=== PATIENT | male | born 1970 | race American Indian/Alaskan Native ===

== ENCOUNTER 2019-04-20 21:49 | Emergency (ER) | payer MEDICAID ==
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
[2019-04-20 22:06] VITALS: BP 141/94; PULSE 115
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
[2019-04-20] MEDS ORDERED: Penicillin V Potassium 250 MG Tab PO ONE (22:54)
[2019-04-20] MEDS ORDERED: Acetaminophen/oxyCODONE 325-5 MG Tab PO ONE (22:55)
== END 2019-04-20 23:15 | disposition home or self-care (01) ==
LOC: JP.ED 21:49
DX: K04.7 Periapical abscess without sinus (principal)
CPT/HCPCS: 70110; 99283; A9270

== ENCOUNTER 2019-04-23 14:02 | Inpatient (IN) | payer MEDICAID ==
[2019-04-23] MEDS ORDERED: Sodium Chloride 0.9% 1,000 ML IV SCH ×2 (14:45→17:15)
--- NOTE | 2019-04-23 14:48 | EDM.PDOC ---
ED HPI GENERAL MEDICAL PROBLEM - General Chief Complaint: General Stated Complaint: SWELLING AND PAIN IN JAW/NECK Time Seen by Provider: 04/23/19 14:28 Source of Information: Reports: Patient History Limitations: Reports: No Limitations - History of Present Illness INITIAL COMMENTS - FREE TEXT/NARRATIVE: 48 yo male presents with left facial swelling and pain. He was previously seen in ER on the and in clinic yesterday. He has been on PCN antibiotic and added Bactrim since yesterday. the swelling and pain continues. He has been taking ibuprofen at least twice daily and Percocet for pain. He is diabetic and has not taken his medications this AM. He did have an US in clinic yesterday without identification of abscess. afebrile. Left Cheek Pain Score (Numeric/FACES): 10 - Related Data Allergies Allergy/AdvReac Type Severity Reaction Status Date / Time No Known Allergies Allergy Verified 04/20/19 22:06 Home Meds: Home Meds Aspirin 81 mg PO DAILY 04/23/19 [History] Hydrocodone/Acetaminophen [Hydrocodon-Acetaminophen 5-325] 1 tab PO TID [History] Ibuprofen 400 mg PO TID PRN 04/23/19 [History] Insulin Glargine,Hum.Rec.Anlog [Basaglar Kwikpen U-100] 20 unit SQ BID 04/23/19 [History] Lisinopril 5 mg PO DAILY 04/23/19 [History] Pregabalin [Lyrica] 100 mg PO TID 04/23/19 [History] Sulfamethoxazole/Trimethoprim [Bactrim Ds Tablet] 1 each PO BID 04/23/19 [ History] atorvaSTATin [Lipitor] 20 mg PO DAILY 04/23/19 [History] Past Medical History HEENT History: Reports: Impaired Vision Endocrine/Metabolic History: Reports: Diabetes, Type II - Infectious Disease History Infectious Disease History: Reports: Chicken Pox - Past Surgical History Head Surgeries/Procedures: Reports: None Dermatological Surgical History: Reports: None Social & Family History - Tobacco Use Smoking Status *Q: Current Every Day Smoker Years of Tobacco use: 30 Packs/Tins Daily: 1 - Caffeine Use Caffeine Use: Reports: Coffee, Soda - Recreational Drug Use Recreational Drug Use: No ED ROS GENERAL - Review of Systems Review Of Systems: See Below Constitutional: Reports: Fatigue. Denies: Fever HEENT: Reports: Dental Pain, Ear Pain, Throat Pain, Throat Swelling Respiratory: Denies: Shortness of Breath, Wheezing Cardiovascular: Denies: Chest Pain : Reports: Frequency ED EXAM, GENERAL - Physical Exam Exam: See Below Exam Limited By: No Limitations General Appearance: Alert, WD/WN, Mild Distress Nose: Normal Inspection, Normal Mucosa, No Blood Throat/Mouth: Other (severe swelling left face at jaw line, very painful to palpate. ) Head: Atraumatic Neck: Lymphadenopathy (L), Tender Lateral. No: Tender Midline Course - Vital Signs Last Recorded V/S: Last Vital Signs Temp 35.6 C 04/23/19 14:23 Pulse 100 04/23/19 15:14 Resp 18 04/23/19 14:23 BP 164/102 H 04/23/19 15:14 Pulse Ox 98 04/23/19 15:14 - Orders/Labs/Meds Orders: Active Orders 24 hr Category Date Time Status Sodium Chloride 0.9% [Normal Saline] 1,000 ml Med 04/23/19 14:45 Active IV ASDIRECTED Medication Orders Sodium Chloride (Normal Saline) 1,000 mls @ 500 mls/hr IV ASDIRECTED YARON Last Admin: 04/23/19 15:01 Dose: 500 mls/hr Labs: Laboratory Tests 04/23/19 04/23/19 04/23/19 Range/Units 15:05 15:05 15:05 WBC 15.3 H (4.5-11.0) K/uL RBC 5.74 (4.30-5.90) M/uL Hgb 16.8 H (12.0-15.0) g/dL Hct 49.1 (40.0-54.0) % MCV 86 (80-98) fL MCH 29 (27-31) pg MCHC 34 (32-36) % Plt Count 375 (150-400) K/uL Neut % (Auto) 84 H (36-66) % Lymph % (Auto) 8 L (24-44) % [place] % (Auto) 8 H (2-6) % Eos % (Auto) 0 L (2-4) % Baso % (Auto) 0 (0-1) % Sodium 127 L (140-148) mmol/L Potassium 6.4 H* (3.6-5.2) mmol/L Chloride 91 L (100-108) mmol/L Carbon Dioxide 26 (21-32) mmol/L Anion Gap 16.4 H (5.0-14.0) mmol/L BUN 13 D (7-18) mg/dL Creatinine 1.1 (0.8-1.3) mg/dL Est Cr Clr Drug Dosing 83.39 mL/min Estimated GFR (MDRD) > 60 (>60) Glucose 530 H* (74-106) mg/dL Lactic Acid 2.7 H (0.4-2.0) mmol/L Calcium 9.4 (8.5-10.1) mg/dL Meds: Medications Generic Name Dose Route Start Last Admin Trade Name Freq PRN Reason Stop Dose Admin Sodium Chloride 1,000 mls @ 500 mls/hr 04/23/19 14:45 04/23/19 15:01 Normal Saline IV 500 mls/hr ASDIRECTED YARON Administration Discontinued Medications Generic Name Dose Route Start Last Admin Trade Name Freq PRN Reason Stop Dose Admin Fentanyl 50 mcg 04/23/19 15:37 04/23/19 15:42 Sublimaze IVPUSH 04/23/19 15:38 50 mcg ONETIME ONE Administration Insulin Human NPH 14 unit 04/23/19 16:15 04/23/19 16:09 Humulin N SUBCUT 04/23/19 16:16 14 unit ONETIME ONE Administration Ketorolac Tromethamine 30 mg 04/23/19 15:36 04/23/19 15:42 Toradol IVPUSH 04/23/19 15:37 30 mg ONETIME ONE Administration - Re-Assessments/Exams Free Text/Narrative Re-Assessment/Exam: 04/23/19 17:15 Dr. gilliam consulted for admission for IV antibiotics facial cellulitis and hyperglycemia Departure - Departure Time of Disposition: 17:16 Disposition: Admitted As Inpatient 65 Condition: Fair Clinical Impression: Facial cellulitis Hyperglycemia due to type 2 diabetes mellitus Qualifiers: Diabetes mellitus usp insulin use: with usp use Qualified Code(s): E11.65 - Type 2 diabetes mellitus with hyperglycemia; Z79.4 - cleat blanker (current ) use of insulin - Discharge Information Referrals: Anna Welch MD [Primary Care Provider] - Forms: ED Department Discharge - My Orders Last 24 Hours: My Active Orders 04/23/19 14:45 Sodium Chloride 0.9% [Normal Saline] 1,000 ml IV ASDIRECTED - Assessment/Plan Last 24 Hours: My Active Orders 04/23/19 14:45 Sodium Chloride 0.9% [Normal Saline] 1,000 ml IV ASDIRECTED
[2019-04-23] MEDS ORDERED: Ketorolac 30 MG/ML SDV IVPUSH ONE (15:36)
[2019-04-23] MEDS ORDERED: fentaNYL 100 MCG/2 ML SDV IVPUSH ONE (15:37)
[2019-04-23] MEDS ORDERED: Insulin Isophane NPH, Human 100 Units/ML 10 ML Vial SUBCUT ONE (15:47)
[2019-04-23] MEDS ORDERED: Insulin Isophane NPH, Human 100 Units/ML 3 ML Vial SUBCUT ONE (16:15)
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
[2019-04-23] MEDS ORDERED: Ondansetron 4 MG Tab.DIS PO PRN (17:44)
[2019-04-23] MEDS ORDERED: LORazepam 2 MG/ML SDV IVPUSH PRN (17:44)
[2019-04-23] MEDS ORDERED: Ondansetron 4 MG/2 ML SDV IV PRN (17:44)
[2019-04-23] MEDS ORDERED: Magnesium Hydroxide 400 MG/5 ML Susp 30 ML Cup PO PRN (17:44)
[2019-04-23] MEDS ORDERED: Lidocaine 2% Viscous Solution 15 ML Cup PO PRN (17:57)
[2019-04-23] MEDS: metFORMIN 500 MG Tab PO SCH (18:33)
[2019-04-23] MEDS: oxyCODONE 5 MG Tab PO PRN (19:07)
[2019-04-23] MEDS: Ibuprofen 600 MG Tab PO PRN (19:07)
[2019-04-23] MEDS: Sodium Chloride 0.9% 1,000 ML IV SCH (20:10)
[2019-04-23] MEDS: Insulin Lispro 100 Unit/ML 3 ML KwikPen SUBCUT SCH (20:59)
[2019-04-23] MEDS: Insulin Glargine,Human Rec. Analog 100 Units/ML 3 ML Pen SUBCUT SCH (21:00)
[2019-04-23] MEDS: Pregabalin 100 MG Cap PO SCH (21:01)
[2019-04-23] MEDS: Lactobacillus Rhamnosus GG (Probiotic) Cap PO SCH (21:01)
[2019-04-23] MEDS: HYDROmorphone 1 MG/ML Syringe IVPUSH PRN (22:19)
[2019-04-24] MEDS: HYDROmorphone 1 MG/ML Syringe IVPUSH PRN ×5 (01:00→16:53)
[2019-04-24] MEDS: Sodium Chloride 0.9% 1,000 ML IV SCH (03:46)
[2019-04-24] MEDS: Ibuprofen 600 MG Tab PO PRN (06:41)
[2019-04-24] MEDS: Acetaminophen 325 MG Tab PO PRN ×2 (06:41→21:17)
[2019-04-24] MEDS: Insulin Lispro 100 Unit/ML 3 ML KwikPen SUBCUT SCH ×4 (07:31→20:46)
[2019-04-24] MEDS: Lactobacillus Rhamnosus GG (Probiotic) Cap PO SCH ×2 (08:55→20:46)
[2019-04-24] MEDS: metFORMIN 500 MG Tab PO SCH ×2 (08:55→16:53)
[2019-04-24] MEDS: Aspirin 81 MG Tab.EC PO SCH (08:56)
[2019-04-24] MEDS: Lisinopril 5 MG Tab PO SCH (08:56)
[2019-04-24] MEDS: atorvaSTATin 20 MG Tab PO SCH (08:56)
[2019-04-24] MEDS: Insulin Glargine,Human Rec. Analog 100 Units/ML 3 ML Pen SUBCUT SCH ×2 (09:03→20:45)
[2019-04-24] MEDS: Pregabalin 100 MG Cap PO SCH ×3 (09:04→22:34)
[2019-04-24] MEDS ORDERED: Ketorolac 30 MG/ML SDV IVPUSH PRN (09:12)
--- NOTE | 2019-04-24 09:14 | PCM.PN ---
- General Info Date of Service: 04/24/19 Subjective Update: there were no acute events overnight. The patient did have a fever after admission. Temperature is normal today. Pain with swallowing and pain in the left cheek are a little better today but still moderate to moderately severe. In general he's feeling better. Blood sugars have been improving but remain moderately elevated. tolerating antibiotics so far. Functional Status: Reports: Pain Controlled, Tolerating Diet - Review of Systems General: Reports: Fever HEENT: Reports: Sore Throat - Patient Data Vitals - Most Recent: Last Vital Signs Temp 37.1 C 04/24/19 07:11 Pulse 92 04/24/19 01:04 Resp 16 04/24/19 01:04 BP 115/81 04/24/19 08:56 Pulse Ox 97 04/24/19 01:04 Weight - Most Recent: 72.575 kg I&O - Last 24 Hours: Intake & Output 04/23/19 04/24/19 04/24/19 22:59 06:59 14:59 Intake Total 2178 Output Total 500 Balance -500 2178 Lab Results Last 24 Hours: Laboratory Results - last 24 hr 04/23/19 04/23/19 04/23/19 Range/Units 15:05 15:05 15:05 WBC 15.3 H (4.5-11.0) K/uL RBC 5.74 (4.30-5.90) M/uL Hgb 16.8 H (12.0-15.0) g/dL Hct 49.1 (40.0-54.0) % MCV 86 (80-98) fL MCH 29 (27-31) pg MCHC 34 (32-36) % Plt Count 375 (150-400) K/uL Neut % (Auto) 84 H (36-66) % Lymph % (Auto) 8 L (24-44) % Moffat % (Auto) 8 H (2-6) % Eos % (Auto) 0 L (2-4) % Baso % (Auto) 0 (0-1) % Sodium 127 L (140-148) mmol/L Potassium 6.4 H* (3.6-5.2) mmol/L Chloride 91 L (100-108) mmol/L Carbon Dioxide 26 (21-32) mmol/L Anion Gap 16.4 H (5.0-14.0) mmol/L BUN 13 D (7-18) mg/dL Creatinine 1.1 (0.8-1.3) mg/dL Est Cr Clr Drug Dosing 83.39 mL/min Estimated GFR (MDRD) > 60 (>60) Glucose 530 H* (74-106) mg/dL Lactic Acid 2.7 H (0.4-2.0) mmol/L Calcium 9.4 (8.5-10.1) mg/dL 04/23/19 04/23/19 04/24/19 Range/Units 21:32 21:32 04:10 WBC 15.9 H (4.5-11.0) K/uL RBC 4.96 (4.30-5.90) M/uL Hgb 14.6 D (12.0-15.0) g/dL Hct 43.4 (40.0-54.0) % MCV 88 (80-98) fL MCH 29 (27-31) pg MCHC 34 (32-36) % Plt Count 304 (150-400) K/uL Neut % (Auto) (36-66) % Lymph % (Auto) (24-44) % Moffat % (Auto) (2-6) % Eos % (Auto) (2-4) % Baso % (Auto) (0-1) % Sodium 134 L (140-148) mmol/L Potassium 4.4 (3.6-5.2) mmol/L Chloride 99 L (100-108) mmol/L Carbon Dioxide 29 (21-32) mmol/L Anion Gap 10.4 (5.0-14.0) mmol/L BUN 11 (7-18) mg/dL Creatinine 1.0 (0.8-1.3) mg/dL Est Cr Clr Drug Dosing 91.73 mL/min Estimated GFR (MDRD) > 60 (>60) Glucose 326 H (74-106) mg/dL Lactic Acid 1.9 (0.4-2.0) mmol/L Calcium 8.6 (8.5-10.1) mg/dL 04/24/19 Range/Units 04:10 WBC (4.5-11.0) K/uL RBC (4.30-5.90) M/uL Hgb (12.0-15.0) g/dL Hct (40.0-54.0) % MCV (80-98) fL MCH (27-31) pg MCHC (32-36) % Plt Count (150-400) K/uL Neut % (Auto) (36-66) % Lymph % (Auto) (24-44) % Moffat % (Auto) (2-6) % Eos % (Auto) (2-4) % Baso % (Auto) (0-1) % Sodium 137 L (140-148) mmol/L Potassium 4.2 (3.6-5.2) mmol/L Chloride 100 (100-108) mmol/L Carbon Dioxide 28 (21-32) mmol/L Anion Gap 13.2 (5.0-14.0) mmol/L BUN 9 (7-18) mg/dL Creatinine 0.8 (0.8-1.3) mg/dL Est Cr Clr Drug Dosing 114.66 mL/min Estimated GFR (MDRD) > 60 (>60) Glucose 248 H (74-106) mg/dL Lactic Acid (0.4-2.0) mmol/L Calcium 8.4 L (8.5-10.1) mg/dL Med Orders - Current: Current Medications Acetaminophen (Tylenol) 650 mg PO Q4H PRN PRN Reason: Pain (Mild 1-3)/fever Last Admin: 04/24/19 06:41 Dose: 650 mg Aspirin (Halfprin) 81 mg PO DAILY [facility] Last Admin: 04/24/19 08:56 Dose: 81 mg Atorvastatin Calcium (Lipitor) 20 mg PO DAILY [facility] Last Admin: 04/24/19 08:56 Dose: 20 mg Hydromorphone HCl (Dilaudid) 1 mg IVPUSH Q2H PRN PRN Reason: Pain (severe 7-10) Last Admin: 04/24/19 03:46 Dose: 1 mg Sodium Chloride (Normal Saline) 1,000 mls @ 125 mls/hr IV ASDIRECTED [facility] Last Admin: 04/24/19 03:46 Dose: 125 mls/hr Clindamycin Phosphate 600 mg/ (Sodium Chloride) 54 mls @ 100 mls/hr IV Q8H [facility] Last Admin: 04/24/19 08:52 Dose: 100 mls/hr Ibuprofen (Motrin) 600 mg PO Q6H PRN PRN Reason: Pain/Fever Last Admin: 04/24/19 06:41 Dose: 600 mg Insulin Glargine (Lantus Solostar) 20 units SUBCUT BID [facility] Last Admin: 04/24/19 09:03 Dose: 20 unit Insulin Human Lispro (Humalog) 0 unit SUBCUT QIDACANDBED [facility]; Protocol Last Admin: 04/24/19 07:31 Dose: 5 units Lactobacillus Rhamnosus (Culturelle) 1 cap PO BID [facility] Last Admin: 04/24/19 08:55 Dose: 1 cap Lidocaine HCl (Xylocaine 2% Viscous) 15 ml PO Q4H PRN PRN Reason: pain with swallowing Last Admin: 04/24/19 08:54 Dose: 15 ml Lisinopril (Prinivil) 5 mg PO DAILY [facility] Last Admin: 04/24/19 08:56 Dose: 5 mg Lorazepam (Ativan) 0.5 mg IVPUSH Q4H PRN PRN Reason: Nausea/Vomiting Magnesium Hydroxide (Milk Of Magnesia) 30 ml PO Q12H PRN PRN Reason: Constipation [facility] Last Admin: 04/24/19 08:55 Dose: 1,000 mg Ondansetron HCl (Zofran Odt) 4 mg PO Q6H PRN PRN Reason: Nausea able to take PO Ondansetron HCl (Zofran) 4 mg IV Q6H PRN PRN Reason: Nausea/Vomiting Oxycodone HCl (Oxycodone) 5 - 10 mg PO Q4H PRN PRN Reason: Pain Last Admin: 04/23/19 19:07 Dose: 10 mg Pregabalin (Lyrica) 100 mg PO TID [facility] Last Admin: 04/24/19 09:04 Dose: 100 mg Senna/Docusate Sodium (Senna Plus) 1 tab PO BID PRN PRN Reason: Constipation Discontinued Medications Fentanyl (Sublimaze) 50 mcg IVPUSH ONETIME ONE Stop: 04/23/19 15:38 Last Admin: 04/23/19 15:42 Dose: 50 mcg Sodium Chloride (Normal Saline) 1,000 mls @ 500 mls/hr IV ASDIRECTED [facility] Last Admin: 04/23/19 15:01 Dose: 500 mls/hr Clindamycin Phosphate 600 mg/ (Sodium Chloride) 54 mls @ 100 mls/hr IV Q8H [facility] Last Admin: 04/24/19 01:00 Dose: 100 mls/hr Sodium Chloride (Normal Saline) 1,000 mls @ 500 mls/hr IV ASDIRECTED [facility] Stop: 04/23/19 19:16 Last Admin: 04/23/19 17:42 Dose: 500 mls/hr Insulin Human NPH (Humulin N) 14 unit SUBCUT ONETIME ONE Stop: 04/23/19 16:16 Last Admin: 04/23/19 16:09 Dose: 14 unit Ketorolac Tromethamine (Toradol) 30 mg IVPUSH ONETIME ONE Stop: 04/23/19 15:37 Last Admin: 04/23/19 15:42 Dose: 30 mg - Exam Quality Assessment: No: Supplemental Oxygen General: Alert, Oriented, Cooperative, No Acute Distress HEENT: Other (swelling left cheek and neck ). No: Mucous Membr. Moist/Bock (dry ) Neck: Supple Lungs: Normal Respiratory Effort GI/Abdominal Exam: Soft, No Distention Extremities: No Pedal Edema Psy/Mental Status: Alert, Normal Affect - Problem List & Annotations (1) Facial cellulitis SNOMED Code(s): 908060711 Code(s): L03.211 - CELLULITIS OF FACE Status: Acute Current Visit: Yes (2) Sepsis SNOMED Code(s): 66559636 Code(s): A41.9 - SEPSIS, UNSPECIFIED ORGANISM Status: Acute Current Visit : Yes Qualifiers: Sepsis type: sepsis due to unspecified organism Sepsis acute organ dysfunction status: without acute organ dysfunction Qualified Code(s): A41.9 - Sepsis, unspecified organism (3) Diabetes mellitus with hyperglycemia, with long-term current use of insulin SNOMED Code(s): 58066948, 352757601, 086605858, 455489190 Code(s): E11.65 - TYPE 2 DIABETES MELLITUS WITH HYPERGLYCEMIA; Z79.4 - LONG-TERM (CURRENT) USE OF INSULIN Status: Chronic Current Visit: Yes Qualifiers: Diabetes mellitus type: type 2 Qualified Code(s): E11.65 - Type 2 diabetes mellitus with hyperglycemia; Z79.4 - senior living (current) use of insulin (4) Tobacco dependence SNOMED Code(s): 46650248 Code(s): F17.200 - NICOTINE DEPENDENCE, UNSPECIFIED, UNCOMPLICATED Status: Chronic Current Visit: Yes (5) Tongue mass Status: Acute Current Visit: Yes - Problem List Review Problem List Initiated/Reviewed/Updated: Yes - My Orders Last 24 Hours: My Active Orders 04/23/19 17:15 Resuscitation Status Routine 04/23/19 17:44 Patient Status [ADT] Routine Antiembolic Devices [RC] .Routine Communication Order [RC] PRN Communication Order [RC] PRN Diabetes Education [RC] Click to Edit Intake and Output [RC] QSHIFT Notify Provider Vital Signs [RC] ASDIRECTED Notify Provider [RC] PRN Up ad Anjelica [RC] ASDIRECTED VTE/DVT Education [RC] Per Unit Routine Vital Signs [RC] Q4H Acetaminophen [Tylenol] 650 mg PO Q4H PRN Docusate Sodium/Sennosides [Senna Plus] 1 tab PO BID PRN HYDROmorphone [Dilaudid] 1 mg IVPUSH Q2H PRN Ibuprofen [Motrin] 600 mg PO Q6H PRN LORazepam [Ativan] 0.5 mg IVPUSH Q4H PRN Magnesium Hydroxide [Milk of Magnesia] 30 ml PO Q12H PRN Ondansetron [Zofran ODT] 4 mg PO Q6H PRN Ondansetron [Zofran] 4 mg IV Q6H PRN Sodium Chloride 0.9% [Normal Saline] 1,000 ml IV ASDIRECTED oxyCODONE 5 - 10 mg PO Q4H PRN Sequential Compression Device [OM.PC] Routine 04/23/19 17:57 Lidocaine 2% [Xylocaine 2% Viscous] 15 ml PO Q4H PRN 04/23/19 18:00 metFORMIN [Glucophage] 1,000 mg PO BIDMEALS 04/23/19 20:00 Insulin Lispro [HumaLOG] See Protocol SUBCUT QIDACANDBED 04/23/19 21:00 Insulin Glarg,Human.Rec.Analog [LantUS Solostar] 20 units SUBCUT BID Lactobacillus Rhamnosus GG [Culturelle] 1 cap PO BID Pregabalin [Lyrica] 100 mg PO TID 04/23/19 Dinner Full Liquid Diet [DIET] 04/24/19 09:00 Aspirin [Halfprin] 81 mg PO DAILY Clindamycin Phosphate [Cleocin] 600 mg Sodium Chloride 0.9% [Normal Saline] 50 ml IV Q8H Lisinopril [Prinivil] 5 mg PO DAILY atorvaSTATin [Lipitor] 20 mg PO DAILY 04/24/19 09:12 Ketorolac [Toradol] 30 mg IVPUSH Q6H PRN 04/24/19 09:15 Sodium Chloride 0.9% [Normal Saline] 1,000 ml IV ASDIRECTED 04/25/19 05:00 BASIC METABOLIC PANEL,BMP [CHEM] Timed CBC W/O DIFF,HEMOGRAM [HEME] Timed (1) 04/25/19 07:30 GLUCOSE POC LAB TO COLLECT [POC] QIDACANDBED 04/25/19 11:30 GLUCOSE POC LAB TO COLLECT [POC] QIDACANDBED 04/25/19 16:30 GLUCOSE POC LAB TO COLLECT [POC] QIDACANDBED 04/25/19 21:00 GLUCOSE POC LAB TO COLLECT [POC] QIDACANDBED 04/26/19 07:30 GLUCOSE POC LAB TO COLLECT [POC] QIDACANDBED 04/26/19 11:30 GLUCOSE POC LAB TO COLLECT [POC] QIDACANDBED 04/26/19 16:30 GLUCOSE POC LAB TO COLLECT [POC] QIDACANDBED 04/26/19 21:00 GLUCOSE POC LAB TO COLLECT [POC] QIDACANDBED 04/27/19 07:30 GLUCOSE POC LAB TO COLLECT [POC] QIDACANDBED 04/27/19 11:30 GLUCOSE POC LAB TO COLLECT [POC] QIDACANDBED 04/27/19 16:30 GLUCOSE POC LAB TO COLLECT [POC] QIDACANDBED 04/27/19 21:00 GLUCOSE POC LAB TO COLLECT [POC] QIDACANDBED 04/28/19 07:30 GLUCOSE POC LAB TO COLLECT [POC] QIDACANDBED 04/28/19 11:30 GLUCOSE POC LAB TO COLLECT [POC] QIDACANDBED 04/28/19 16:30 GLUCOSE POC LAB TO COLLECT [POC] QIDACANDBED 04/28/19 21:00 GLUCOSE POC LAB TO COLLECT [POC] QIDACANDBED 04/29/19 07:30 GLUCOSE POC LAB TO COLLECT [POC] QIDACANDBED - Plan Plan:: ASSESSMENT AND PLAN - Cellulitis of the left face and neck with sepsis - initial trauma was several days ago and has had progressive pain and swelling. white blood cell count stable but lactic acid level improved. Heart rate has improved. Pain and swelling are slightly improved. -Clindamycin -Additional gentle IV fluids -Pain control -Blood cultures if fever Diabetes mellitus with hyperglycemia - blood sugars are trending down. -Continue usual long-acting insulin -High-dose sliding scale insulin -gentle IV fluids -Continue metformin Hyperkalemia - resolved with hydration. -Recheck in the morning Tobacco dependence - Encourage cessation Soft tissue density of the tongue - noted on CT scan. Will need outpatient imaging with either MRI or contrasted CT Maintenance issues - - DVT prophylaxis - mechanical - GI prophylaxis - not indicated - Nutrition - full liquid Disposition - I would anticipate discharge home after the hospital stay Primary care physician - Dr Rebekah Cunha M.D.
[2019-04-24] MEDS ORDERED: Sodium Chloride 0.9% 1,000 ML IV SCH (09:15)
[2019-04-24] MEDS: oxyCODONE 5 MG Tab PO PRN (21:15)
[2019-04-25] MEDS: oxyCODONE 5 MG Tab PO PRN (04:47)
[2019-04-25] MEDS: Insulin Lispro 100 Unit/ML 3 ML KwikPen SUBCUT SCH ×2 (07:31→12:03)
[2019-04-25] MEDS: Insulin Glargine,Human Rec. Analog 100 Units/ML 3 ML Pen SUBCUT SCH (09:10)
[2019-04-25] MEDS: Lisinopril 5 MG Tab PO SCH (09:10)
[2019-04-25] MEDS: atorvaSTATin 20 MG Tab PO SCH (09:10)
[2019-04-25] MEDS: Pregabalin 100 MG Cap PO SCH (09:13)
[2019-04-25] MEDS: metFORMIN 500 MG Tab PO SCH (09:14)
[2019-04-25] MEDS: Aspirin 81 MG Tab.EC PO SCH (09:14)
[2019-04-25] MEDS: Lactobacillus Rhamnosus GG (Probiotic) Cap PO SCH (09:14)
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
[2019-04-25 10:43] VITALS: BP 115/72; PULSE 96
== END 2019-04-25 12:30 | disposition home or self-care (01) | DRG 872 ==
LOC: JP.ED 14:02 → JP.ICU 17:12 → JP.MS 04-24 21:03
PROVIDERS: ADMIT Internal Medicine; ATTEND Internal Medicine
DX: A41.9 Sepsis, unspecified organism (principal); L03.211 Cellulitis of face; L03.221 Cellulitis of neck; E87.2 Acidosis; E11.65 Type 2 diabetes mellitus with hyperglycemia; E87.5 Hyperkalemia; F17.210 Nicotine dependence, cigarettes, uncomplicated; K14.8 Other diseases of tongue; Z79.82 Long term (current) use of aspirin; Z79.899 Other long term (current) drug therapy; Z79.4 Long term (current) use of insulin
CPT/HCPCS: 36415; 70486; 80048; 82962; 83605; 85025; 85027; 96361; 96374; 96375; 99284-25; A9270-GY; J1170; J1815; J1815-GY; J1885; J3010; J3490; J7030; J7050

== ENCOUNTER 2023-05-24 15:31 | Emergency (ER) | payer MEDICAID ==
[2023-05-24 16:39] LABS: BASOPHILS ABSOLUTE AUTO 0.05 K/uL (0.00-0.10); BASOPHILS PERCENT AUTO 0.3 % (0.1-1.3); EOSINOPHILS ABSOLUTE AUTO 0.08 K/uL (0.00-0.40); EOSINOPHILS PERCENT AUTO 0.5 % (0.0-5.4); HEMATOCRIT 48.1 % (38.4-49.7); HEMOGLOBIN 17.5 g/dL (12.9-16.9); IMMATURE GRAN ABSOLUTE AUTO 0.08 K/uL (0.00-0.23); IMMATURE GRAN PERCENT AUTO 0.5 % (0.0-0.7); LYMPHOCYTES ABSOLUTE AUTO 1.15 K/uL (0.8-3.3); LYMPHOCYTES PERCENT AUTO 6.9 % (11.4-47.7); MEAN CORPUSCULAR HEMOGLOBIN 32.5 pg (31.6-35.5); MEAN CORPUSCULAR HGB CONC 36.4 g/dL (31.6-35.5); MEAN CORPUSCULAR VOLUME 89.2 fL (81.4-99.0); MONOCYTES ABSOLUTE AUTO 1.06 K/uL (0.20-0.90); MONOCYTES PERCENT AUTO 6.3 % (3.3-12.6); NEUTROPHILS ABSOLUTE AUTO 14.32 K/uL (1.0-7.6); NEUTROPHILS PERCENT AUTO 85.5 % (40.0-78.1); PLATELET COUNT,PLT 370 K/uL (130-375); RED BLOOD CELL COUNT 5.39 M/uL (4.14-5.76); WHITE BLOOD CELL COUNT,WBC 16.7 K/uL (3.2-11.0)
[2023-05-24 16:52] VITALS: PULSE 98
[2023-05-24 16:55] LABS: A/G RATIO 0.9 (1.2-2.2); ALANINE AMINOTRANSFERASE,ALT 39 U/L (12-78); ALBUMIN 3.3 g/dL (3.4-5.0); ALKALINE PHOSPHATASE 88 U/L (46-116); ASPARTATE AMNIOTRANSFERASE,AST 278 U/L (15-37); BILIRUBIN TOTAL 0.7 mg/dL (0.2-1.0); BLOOD UREA NITROGEN,BUN 9 mg/dL (7-18); C-REACTIVE PROTEIN 0.29 mg/dL (0.0-0.3); CALCIUM 8.5 mg/dL (8.5-10.1); CARBON DIOXIDE,CO2 29 mmol/L (21-32); CHLORIDE,CL 99 mmol/L (100-108); CREATININE 0.9 mg/dL (0.8-1.3); EST CRCL DRUG DOSING (CG) 98.01 mL/min; ESTIMATED GFR 102 mL/min (>60); GLUCOSE RANDOM 276 mg/dL (74-106); POTASSIUM,K 3.9 mmol/L (3.6-5.2); PROTEIN TOTAL,TP 7.1 g/dL (6.4-8.2); SODIUM,NA 137 mmol/L (140-148)
[2023-05-24] MEDS: Ondansetron 4 MG/2 ML SDV IVPUSH ONE (16:57)
[2023-05-24 16:58] LABS: ANION GAP 12.9 mmol/L (5.0-14.0)
[2023-05-24] MEDS: Sodium Chloride 0.9% 1,000 ML IV ONE (16:58)
[2023-05-24] MEDS: Aspirin 81 MG Tab.Chew PO ONE (17:18)
[2023-05-24] MEDS: Heparin Sodium 5,000 Units/ML Vial IVPUSH ONE (17:18)
[2023-05-24] MEDS: Heparin Sodium/D5W 25,000 UNITS/500 ML BAG IV SCH (17:20)
[2023-05-24] MEDS: Ticagrelor 90 MG Tab PO ONE (17:28)
[2023-05-24 17:31] VITALS: BP 187/109
== END 2023-05-24 17:59 ==
LOC: JP.ED 15:31
DX: I21.3 ST elevation (STEMI) myocardial infarction of unspecified site (principal); I10 Essential (primary) hypertension; E11.9 Type 2 diabetes mellitus without complications; F17.210 Nicotine dependence, cigarettes, uncomplicated; Z79.84 Long term (current) use of oral hypoglycemic drugs; Z79.4 Long term (current) use of insulin
CPT/HCPCS: 36415; 71045; 71045-26; 80053; 82009; 82800; 83605; 84484; 85025; 86140; 93005; 93010; 96365; 96375; 96376; 99285; 99285-25; A9270-GY; J1644; J2405; J7030

== ENCOUNTER 2023-06-02 15:40 | Emergency (ER) | payer MEDICAID ==
[2023-06-02] MEDS ORDERED: Sodium Chloride 0.9% 10 ML Syringe FLUSH PRN (15:57)
[2023-06-02 16:01] LABS: BASOPHILS ABSOLUTE AUTO 0.06 K/uL (0.00-0.10); BASOPHILS PERCENT AUTO 0.5 % (0.1-1.3); EOSINOPHILS ABSOLUTE AUTO 0.17 K/uL (0.00-0.40); EOSINOPHILS PERCENT AUTO 1.5 % (0.0-5.4); HEMATOCRIT 47.2 % (38.4-49.7); HEMOGLOBIN 16.4 g/dL (12.9-16.9); IMMATURE GRAN ABSOLUTE AUTO 0.04 K/uL (0.00-0.23); IMMATURE GRAN PERCENT AUTO 0.4 % (0.0-0.7); LYMPHOCYTES ABSOLUTE AUTO 2.31 K/uL (0.8-3.3); LYMPHOCYTES PERCENT AUTO 20.9 % (11.4-47.7); MEAN CORPUSCULAR HEMOGLOBIN 31.5 pg (31.6-35.5); MEAN CORPUSCULAR HGB CONC 34.7 g/dL (31.6-35.5); MEAN CORPUSCULAR VOLUME 90.8 fL (81.4-99.0); MONOCYTES ABSOLUTE AUTO 0.82 K/uL (0.20-0.90); MONOCYTES PERCENT AUTO 7.4 % (3.3-12.6); NEUTROPHILS ABSOLUTE AUTO 7.64 K/uL (1.0-7.6); NEUTROPHILS PERCENT AUTO 69.3 % (40.0-78.1); PLATELET COUNT,PLT 532 K/uL (130-375)
[2023-06-02 16:22] LABS: ANION GAP 16.9 mmol/L (5.0-14.0); BLOOD UREA NITROGEN,BUN 21 mg/dL (7-18); CALCIUM 8.6 mg/dL (8.5-10.1); CARBON DIOXIDE,CO2 25 mmol/L (21-32); CHLORIDE,CL 101 mmol/L (100-108); ESTIMATED GFR 90 mL/min (>60); GLUCOSE RANDOM 139 mg/dL (74-106); POTASSIUM,K 3.9 mmol/L (3.6-5.2); SODIUM,NA 139 mmol/L (140-148)
[2023-06-02 16:24] LABS: TROPONIN I HIGH SENSITIVITY 1205.7 pg/mL (<=60.3)
[2023-06-02] MEDS ORDERED: Heparin Sodium 5,000 Units/ML Vial IVPUSH ONE (18:29)
[2023-06-02] MEDS ORDERED: Heparin Sodium/D5W 25,000 UNITS/500 ML BAG IV SCH (18:30)
[2023-06-02 18:55] VITALS: BP 131/89; PULSE 100
== END 2023-06-02 19:55 ==
LOC: JP.ED 15:40
DX: I21.4 Non-ST elevation (NSTEMI) myocardial infarction (principal); I10 Essential (primary) hypertension; E78.00 Pure hypercholesterolemia, unspecified; I25.2 Old myocardial infarction; E11.9 Type 2 diabetes mellitus without complications; Z87.891 Personal history of nicotine dependence; Z79.84 Long term (current) use of oral hypoglycemic drugs; Z79.899 Other long term (current) drug therapy; Z95.5 Presence of coronary angioplasty implant and graft
CPT/HCPCS: 36415; 80048; 84484; 85025; 93005; 93010; 96365; 99285; J1644

== ENCOUNTER 2023-06-11 13:04 | Emergency (ER) | payer MEDICAID ==
[2023-06-11 13:21] LABS: BASOPHILS ABSOLUTE AUTO 0.07 K/uL (0.00-0.10); BASOPHILS PERCENT AUTO 0.6 % (0.1-1.3); EOSINOPHILS ABSOLUTE AUTO 0.21 K/uL (0.00-0.40); EOSINOPHILS PERCENT AUTO 1.7 % (0.0-5.4); HEMATOCRIT 48.4 % (38.4-49.7); HEMOGLOBIN 16.8 g/dL (12.9-16.9); IMMATURE GRAN ABSOLUTE AUTO 0.06 K/uL (0.00-0.23); IMMATURE GRAN PERCENT AUTO 0.5 % (0.0-0.7); LYMPHOCYTES ABSOLUTE AUTO 2.37 K/uL (0.8-3.3); LYMPHOCYTES PERCENT AUTO 18.7 % (11.4-47.7); MEAN CORPUSCULAR HEMOGLOBIN 31.5 pg (31.6-35.5); MEAN CORPUSCULAR HGB CONC 34.7 g/dL (31.6-35.5); MEAN CORPUSCULAR VOLUME 90.6 fL (81.4-99.0); MONOCYTES ABSOLUTE AUTO 0.73 K/uL (0.20-0.90); MONOCYTES PERCENT AUTO 5.8 % (3.3-12.6); NEUTROPHILS ABSOLUTE AUTO 9.24 K/uL (1.0-7.6); NEUTROPHILS PERCENT AUTO 72.7 % (40.0-78.1); PLATELET COUNT,PLT 535 K/uL (130-375); RED BLOOD CELL COUNT 5.34 M/uL (4.14-5.76); WHITE BLOOD CELL COUNT,WBC 12.7 K/uL (3.2-11.0)
[2023-06-11] MEDS: Aspirin 81 MG Tab.Chew PO ONE (13:25)
[2023-06-11] MEDS: Sodium Chloride 0.9% 10 ML Syringe FLUSH PRN (13:27)
[2023-06-11 13:37] LABS: PROTHROMBIN TIME 10.5 sec (9.2-10.6)
[2023-06-11 13:44] LABS: BLOOD UREA NITROGEN,BUN 10 mg/dL (7-18); CALCIUM 8.7 mg/dL (8.5-10.1); CARBON DIOXIDE,CO2 25 mmol/L (21-32); CHLORIDE,CL 103 mmol/L (100-108); CREATININE 0.9 mg/dL (0.8-1.3); ESTIMATED GFR 102 mL/min (>60); GLUCOSE RANDOM 129 mg/dL (74-106); POTASSIUM,K 3.5 mmol/L (3.6-5.2); SODIUM,NA 141 mmol/L (140-148)
[2023-06-11 13:46] LABS: ANION GAP 16.5 mmol/L (5.0-14.0)
[2023-06-11] MEDS: Heparin Sodium/D5W 25,000 UNITS/500 ML BAG IV SCH (13:57)
[2023-06-11] MEDS: Morphine 2 MG/ML SYRINGE IVPUSH ONE (13:58)
[2023-06-11] MEDS: Heparin Sodium/D5W 500 ML ONE (13:58)
[2023-06-11] MEDS: Heparin Sodium 5,000 Units/ML Vial IVPUSH ONE (13:59)
[2023-06-11 14:20] VITALS: BP 135/88; PULSE 91
== END 2023-06-11 14:19 ==
LOC: JP.ED 13:04
DX: I21.3 ST elevation (STEMI) myocardial infarction of unspecified site (principal); I10 Essential (primary) hypertension; F17.200 Nicotine dependence, unspecified, uncomplicated; E11.9 Type 2 diabetes mellitus without complications; Z95.5 Presence of coronary angioplasty implant and graft; Z79.84 Long term (current) use of oral hypoglycemic drugs; Z79.4 Long term (current) use of insulin
CPT/HCPCS: 36415; 71046; 80048; 84484; 85025; 85610; 96365; 96375; 99285; A9270; J1644; J2270; J3490

== ENCOUNTER 2023-06-25 09:33 | Emergency (ER) | payer MEDICAID ==
[2023-06-25 10:23] LABS: APPEARANCE,URINE CLEAR (CLEAR); BILIRUBIN,URINE NEGATIVE (NEGATIVE); COLOR,URINE YELLOW (YELLOW); GLUCOSE,URINE 500 mg/dL (NEGATIVE); KETONES,URINE NEGATIVE (NEGATIVE); LEUKOCYTE ESTERASE,URINE NEGATIVE (NEGATIVE); NITRITE,URINE NEGATIVE (NEGATIVE); OCCULT BLOOD,URINE SMALL (NEGATIVE); PH,URINE 5.5 (5.0-8.0); PROTEIN,URINE >=300 mg/dL (NEGATIVE); UROBILINOGEN,URINE 0.2 EU/dL (0.2-1.0)
[2023-06-25 10:28] LABS: BASE EXCESS VENOUS 0.9 mm/L; BICARBONATE,VENOUS 26.3 mmol/L; CARBOXYHEMOGLOBIN 2.8 % (0.0-1.6); O2 SATURATION VENOUS 38.3; OXYHEMOGLOBIN 36.8 %; PCO2 VENOUS 46.7 mm/Hg; TOTAL HEMOGLOBIN 16.1 g/dL (13.5-18.0)
[2023-06-25 10:31] LABS: PO2 VENOUS 25.2 mm/Hg
[2023-06-25 10:31] LABS: AMPHETAMINES SCREEN, URINE NEGATIVE (NEGATIVE); BARBITURATE SCREEN,URINE NEGATIVE (NEGATIVE); BENZODIAZEPINES SCREEN,URINE NEGATIVE (NEGATIVE); METHADONE SCREEN, URINE NEGATIVE (NEGATIVE); METHAMPHETAMINES SCREEN, URINE NEGATIVE (NEGATIVE); OXYCODONE SCREEN,URINE NEGATIVE (NEGATIVE); PROPOXYPHENE SCREEN,URINE NEGATIVE (NEGATIVE); THC SCREEN,URINE 50 NG/ML NEGATIVE (NEGATIVE)
[2023-06-25 10:33] LABS: BASOPHILS ABSOLUTE AUTO 0.06 K/uL (0.00-0.10); BASOPHILS PERCENT AUTO 0.6 % (0.1-1.3); EOSINOPHILS ABSOLUTE AUTO 0.32 K/uL (0.00-0.40); EOSINOPHILS PERCENT AUTO 3.3 % (0.0-5.4); HEMATOCRIT 44.3 % (38.4-49.7); HEMOGLOBIN 15.5 g/dL (12.9-16.9); IMMATURE GRAN ABSOLUTE AUTO 0.05 K/uL (0.00-0.23); IMMATURE GRAN PERCENT AUTO 0.5 % (0.0-0.7); LYMPHOCYTES ABSOLUTE AUTO 1.57 K/uL (0.8-3.3); LYMPHOCYTES PERCENT AUTO 16.1 % (11.4-47.7); MEAN CORPUSCULAR HEMOGLOBIN 31.8 pg (31.6-35.5); MONOCYTES ABSOLUTE AUTO 0.69 K/uL (0.20-0.90); MONOCYTES PERCENT AUTO 7.1 % (3.3-12.6); NEUTROPHILS ABSOLUTE AUTO 7.08 K/uL (1.0-7.6); NEUTROPHILS PERCENT AUTO 72.4 % (40.0-78.1); PLATELET COUNT,PLT 384 K/uL (130-375); RED BLOOD CELL COUNT 4.87 M/uL (4.14-5.76); WHITE BLOOD CELL COUNT,WBC 9.8 K/uL (3.2-11.0)
[2023-06-25 10:37] LABS: AMORPHOUS SEDIMENT,URINE NOT SEEN; BACTERIA,URINE NOT SEEN; EPITHELIAL CELLS,URINE RARE; MUCUS,URINE NOT SEEN; RBC,URINE 0-5 (0-5); WBC,URINE NOT SEEN (0-5)
[2023-06-25 10:49] LABS: PROTHROMBIN TIME 9.8 sec (9.2-10.6)
[2023-06-25 10:52] LABS: CORONAVIRUS COVID-19 NAA NEGATIVE (NEGATIVE); INFLUENZA A NAA NEGATIVE (NEGATIVE); INFLUENZA B NAA NEGATIVE (NEGATIVE); RESPIRATORY SYNCYTIAL VIR NAA NEGATIVE (NEGATIVE)
[2023-06-25 10:58] LABS: A/G RATIO 0.8 (1.2-2.2); ALANINE AMINOTRANSFERASE,ALT 23 U/L (12-78); ALBUMIN 3.3 g/dL (3.4-5.0); ALKALINE PHOSPHATASE 92 U/L (46-116); ANION GAP 7.2 mmol/L (5.0-14.0); ASPARTATE AMNIOTRANSFERASE,AST 14 U/L (15-37); BILIRUBIN TOTAL 0.7 mg/dL (0.2-1.0); BLOOD UREA NITROGEN,BUN 14 mg/dL (7-18); CALCIUM 8.9 mg/dL (8.5-10.1); CARBON DIOXIDE,CO2 29 mmol/L (21-32); CHLORIDE,CL 106 mmol/L (100-108); CREATININE 0.9 mg/dL (0.8-1.3); EST CRCL DRUG DOSING (CG) 98.01 mL/min; ESTIMATED GFR 102 mL/min (>60); GLUCOSE RANDOM 161 mg/dL (74-106); POTASSIUM,K 4.2 mmol/L (3.6-5.2); PRO B-TYPE NATRIUR PEPT,BNPPRO 798 pg/mL (5-125); PROTEIN TOTAL,TP 7.3 g/dL (6.4-8.2); SODIUM,NA 142 mmol/L (140-148); TROPONIN I HIGH SENSITIVITY 24.4 pg/mL (<=60.3)
[2023-06-25] MEDS ORDERED: Sodium Chloride 0.9% 75 ML IV ONE (11:22)
[2023-06-25] MEDS ORDERED: Sodium Chloride 0.9% 10 ML Syringe FLUSH PRN (11:22)
[2023-06-25] MEDS ORDERED: Iopamidol 755 Mg/ML 100 ML Bottle IV SCH (11:30)
[2023-06-25 13:00] VITALS: BP 143/90; PULSE 79
== END 2023-06-25 13:36 | disposition home or self-care (01) ==
LOC: JP.ED 09:33
DX: I25.10 Atherosclerotic heart disease of native coronary artery without angina pectoris (principal); I10 Essential (primary) hypertension; I25.2 Old myocardial infarction; E78.00 Pure hypercholesterolemia, unspecified; E11.9 Type 2 diabetes mellitus without complications; Z79.82 Long term (current) use of aspirin; Z79.4 Long term (current) use of insulin; Z79.84 Long term (current) use of oral hypoglycemic drugs; Z95.5 Presence of coronary angioplasty implant and graft; Z79.899 Other long term (current) drug therapy
CPT/HCPCS: 0241U; 36415; 71045; 71275; 80053; 80305; 80307; 81001; 82803; 83880; 84484; 85025; 85379; 85610; 93005; 99285; J3490; Q9967

== ENCOUNTER 2023-07-07 11:36 | Emergency (ER) | payer MEDICAID ==
[2023-07-07 11:58] VITALS: PULSE 116
[2023-07-07 12:02] VITALS: BP 130/82
[2023-07-07] MEDS ORDERED: Ketorolac 30 MG/ML SDV IM ONE (12:28)
[2023-07-07] MEDS ORDERED: Ondansetron 4 MG Tab.DIS PO ONE (12:28)
[2023-07-07] MEDS ORDERED: cefTRIAXone 1 GM, Lidocaine 1% 2.1 ML IM ONE ×2 (12:29)
[2023-07-07 12:39] LABS: BASOPHILS ABSOLUTE AUTO 0.06 K/uL (0.00-0.10); BASOPHILS PERCENT AUTO 0.5 % (0.1-1.3); EOSINOPHILS ABSOLUTE AUTO 0.13 K/uL (0.00-0.40); EOSINOPHILS PERCENT AUTO 1.2 % (0.0-5.4); HEMOGLOBIN 16.4 g/dL (12.9-16.9); IMMATURE GRAN ABSOLUTE AUTO 0.04 K/uL (0.00-0.23); IMMATURE GRAN PERCENT AUTO 0.4 % (0.0-0.7); LYMPHOCYTES ABSOLUTE AUTO 1.05 K/uL (0.8-3.3); LYMPHOCYTES PERCENT AUTO 9.4 % (11.4-47.7); MEAN CORPUSCULAR HEMOGLOBIN 31.7 pg (31.6-35.5); MEAN CORPUSCULAR HGB CONC 34.9 g/dL (31.6-35.5); MEAN CORPUSCULAR VOLUME 90.7 fL (81.4-99.0); MONOCYTES ABSOLUTE AUTO 0.79 K/uL (0.20-0.90); MONOCYTES PERCENT AUTO 7.1 % (3.3-12.6); NEUTROPHILS ABSOLUTE AUTO 9.07 K/uL (1.0-7.6); NEUTROPHILS PERCENT AUTO 81.4 % (40.0-78.1); PLATELET COUNT,PLT 345 K/uL (130-375); RED BLOOD CELL COUNT 5.18 M/uL (4.14-5.76); WHITE BLOOD CELL COUNT,WBC 11.1 K/uL (3.2-11.0)
[2023-07-07 13:04] LABS: CALCIUM 8.7 mg/dL (8.5-10.1); EST CRCL DRUG DOSING (CG) 87.19 mL/min; POTASSIUM,K 4.2 mmol/L (3.6-5.2)
[2023-07-07 13:05] LABS: ANION GAP 16.2 mmol/L (5.0-14.0)
== END 2023-07-07 13:48 | disposition home or self-care (01) ==
LOC: JP.ED 11:36
DX: K04.7 Periapical abscess without sinus (principal); E78.00 Pure hypercholesterolemia, unspecified; I25.10 Atherosclerotic heart disease of native coronary artery without angina pectoris; I10 Essential (primary) hypertension; I25.2 Old myocardial infarction; E11.9 Type 2 diabetes mellitus without complications; F17.210 Nicotine dependence, cigarettes, uncomplicated; Z79.4 Long term (current) use of insulin; Z79.82 Long term (current) use of aspirin; Z79.899 Other long term (current) drug therapy
CPT/HCPCS: 36415; 80048; 83605; 84484; 85025; 96372; 99284; J0696; J1885; Q0162

== ENCOUNTER 2023-07-09 08:32 | Emergency (ER) | payer MEDICAID ==
[2023-07-09 09:01] VITALS: BP 143/89; PULSE 91
== END 2023-07-09 09:22 | disposition home or self-care (01) ==
LOC: JP.ED 08:32
DX: K04.7 Periapical abscess without sinus (principal); I10 Essential (primary) hypertension; I25.10 Atherosclerotic heart disease of native coronary artery without angina pectoris; I25.2 Old myocardial infarction; Z95.5 Presence of coronary angioplasty implant and graft; F17.210 Nicotine dependence, cigarettes, uncomplicated; Z79.4 Long term (current) use of insulin; Z79.899 Other long term (current) drug therapy; Z79.82 Long term (current) use of aspirin
CPT/HCPCS: 99282

== ENCOUNTER 2023-08-07 15:10 | Emergency (ER) | payer MEDICAID ==
[2023-08-07 15:39] LABS: BASOPHILS ABSOLUTE AUTO 0.09 K/uL (0.00-0.10); EOSINOPHILS ABSOLUTE AUTO 0.26 K/uL (0.00-0.40); EOSINOPHILS PERCENT AUTO 2.7 % (0.0-5.4); HEMATOCRIT 46.5 % (38.4-49.7); HEMOGLOBIN 16.1 g/dL (12.9-16.9); IMMATURE GRAN ABSOLUTE AUTO 0.04 K/uL (0.00-0.23); IMMATURE GRAN PERCENT AUTO 0.4 % (0.0-0.7); LYMPHOCYTES ABSOLUTE AUTO 0.84 K/uL (0.8-3.3); LYMPHOCYTES PERCENT AUTO 8.9 % (11.4-47.7); MEAN CORPUSCULAR HEMOGLOBIN 31.4 pg (31.6-35.5); MEAN CORPUSCULAR HGB CONC 34.6 g/dL (31.6-35.5); MEAN CORPUSCULAR VOLUME 90.6 fL (81.4-99.0); MONOCYTES ABSOLUTE AUTO 0.72 K/uL (0.20-0.90); MONOCYTES PERCENT AUTO 7.6 % (3.3-12.6); NEUTROPHILS ABSOLUTE AUTO 7.51 K/uL (1.0-7.6); NEUTROPHILS PERCENT AUTO 79.4 % (40.0-78.1); PLATELET COUNT,PLT 338 K/uL (130-375); RED BLOOD CELL COUNT 5.13 M/uL (4.14-5.76); WHITE BLOOD CELL COUNT,WBC 9.5 K/uL (3.2-11.0)
[2023-08-07 16:07] LABS: ALANINE AMINOTRANSFERASE,ALT 26 U/L (12-78); ALBUMIN 3.5 g/dL (3.4-5.0); ALKALINE PHOSPHATASE 89 U/L (46-116); ANION GAP 14.2 mmol/L (5.0-14.0); ASPARTATE AMNIOTRANSFERASE,AST 16 U/L (15-37); BLOOD UREA NITROGEN,BUN 14 mg/dL (7-18); CALCIUM 8.7 mg/dL (8.5-10.1); CARBON DIOXIDE,CO2 24 mmol/L (21-32); CHLORIDE,CL 103 mmol/L (100-108); ESTIMATED GFR 89 mL/min (>60); GLUCOSE RANDOM 170 mg/dL (74-106); POTASSIUM,K 3.9 mmol/L (3.6-5.2); PRO B-TYPE NATRIUR PEPT,BNPPRO 591 pg/mL (5-125); PROTEIN TOTAL,TP 7.1 g/dL (6.4-8.2); SODIUM,NA 141 mmol/L (140-148)
[2023-08-07] MEDS ORDERED: Sodium Chloride 0.9% 10 ML Syringe FLUSH PRN (16:10)
[2023-08-07] MEDS ORDERED: Ondansetron 4 MG/2 ML SDV IVPUSH ONE (16:10)
[2023-08-07 16:13] LABS: INFLUENZA A NAA NEGATIVE (NEGATIVE); INFLUENZA B NAA NEGATIVE (NEGATIVE); RESPIRATORY SYNCYTIAL VIR NAA NEGATIVE (NEGATIVE)
[2023-08-07 16:14] LABS: CORONAVIRUS COVID-19 NAA POSITIVE (NEGATIVE)
[2023-08-07 16:15] LABS: APPEARANCE,URINE CLEAR (CLEAR); BILIRUBIN,URINE NEGATIVE (NEGATIVE); COLOR,URINE YELLOW (YELLOW); GLUCOSE,URINE 500 mg/dL (NEGATIVE); KETONES,URINE 40 mg/dL (NEGATIVE); LEUKOCYTE ESTERASE,URINE NEGATIVE (NEGATIVE); NITRITE,URINE NEGATIVE (NEGATIVE); OCCULT BLOOD,URINE MODERATE (NEGATIVE); PH,URINE 5.5 (5.0-8.0); PROTEIN,URINE >=300 mg/dL (NEGATIVE); UROBILINOGEN,URINE 0.2 EU/dL (0.2-1.0)
[2023-08-07 16:24] LABS: AMORPHOUS SEDIMENT,URINE NOT SEEN; BACTERIA,URINE NOT SEEN; EPITHELIAL CELLS,URINE RARE; MUCUS,URINE NOT SEEN; WBC,URINE 0-5 (0-5)
[2023-08-07] MEDS ORDERED: Ketorolac 30 MG/ML SDV IVPUSH ONE (16:31)
[2023-08-07] MEDS ORDERED: Sodium Chloride 0.9% 1,000 ML IV ONE (16:31)
[2023-08-07 18:12] VITALS: BP 140/87; PULSE 91
== END 2023-08-07 18:35 | disposition home or self-care (01) ==
LOC: JP.ED 15:10
DX: U07.1 COVID-19 (principal); E86.0 Dehydration; R11.2 Nausea with vomiting, unspecified; I10 Essential (primary) hypertension; I25.2 Old myocardial infarction; I25.10 Atherosclerotic heart disease of native coronary artery without angina pectoris; E78.00 Pure hypercholesterolemia, unspecified; E11.9 Type 2 diabetes mellitus without complications; F17.210 Nicotine dependence, cigarettes, uncomplicated; Z79.82 Long term (current) use of aspirin; Z79.899 Other long term (current) drug therapy; Z79.4 Long term (current) use of insulin
CPT/HCPCS: 0241U; 36415; 71046; 80053; 81001; 83605; 83880; 84484; 85025; 85379; 93005; 93010; 96361; 96374; 96375; 99283; 99285; J1885; J2405; J3490; J7030

== ENCOUNTER 2023-09-26 12:37 | Emergency (ER) | payer MEDICAID ==
[2023-09-26 13:54] LABS: BASE EXCESS VENOUS 0.4 mm/L; BASOPHILS ABSOLUTE AUTO 0.05 K/uL (0.00-0.10); BASOPHILS PERCENT AUTO 0.6 % (0.1-1.3); BICARBONATE,VENOUS 25.3 mmol/L; CARBOXYHEMOGLOBIN 2.9 % (0.0-1.6); EOSINOPHILS ABSOLUTE AUTO 0.09 K/uL (0.00-0.40); HEMATOCRIT 48.6 % (38.4-49.7); IMMATURE GRAN ABSOLUTE AUTO 0.03 K/uL (0.00-0.23); IMMATURE GRAN PERCENT AUTO 0.3 % (0.0-0.7); LYMPHOCYTES ABSOLUTE AUTO 1.23 K/uL (0.8-3.3); MEAN CORPUSCULAR HEMOGLOBIN 31.8 pg (31.6-35.5); MONOCYTES ABSOLUTE AUTO 0.44 K/uL (0.20-0.90); NEUTROPHILS ABSOLUTE AUTO 6.96 K/uL (1.0-7.6); NEUTROPHILS PERCENT AUTO 79.1 % (40.0-78.1); O2 SATURATION VENOUS 46.7; OXYHEMOGLOBIN 44.9 %; PCO2 VENOUS 43.6 mm/Hg; PH,VENOUS 7.382 (7.350-7.450); PLATELET COUNT,PLT 342 K/uL (130-375); RED BLOOD CELL COUNT 5.34 M/uL (4.14-5.76); TOTAL HEMOGLOBIN 17.5 g/dL (13.5-18.0); WHITE BLOOD CELL COUNT,WBC 8.8 K/uL (3.2-11.0)
[2023-09-26 13:55] LABS: PO2 VENOUS 26.8 mm/Hg
[2023-09-26] MEDS: Ondansetron 4 MG/2 ML SDV IVPUSH ONE (14:09)
[2023-09-26] MEDS: HYDROmorphone 0.5 MG/0.5 ML Syringe IVPUSH ONE (14:09)
[2023-09-26] MEDS: Sodium Chloride 0.9% 1,000 ML IV SCH (14:10)
[2023-09-26 14:11] LABS: APPEARANCE,URINE CLEAR (CLEAR); BILIRUBIN,URINE NEGATIVE (NEGATIVE); COLOR,URINE YELLOW (YELLOW); GLUCOSE,URINE 500 mg/dL (NEGATIVE); KETONES,URINE 40 mg/dL (NEGATIVE); LEUKOCYTE ESTERASE,URINE NEGATIVE (NEGATIVE); NITRITE,URINE NEGATIVE (NEGATIVE); OCCULT BLOOD,URINE MODERATE (NEGATIVE); PROTEIN,URINE >=300 mg/dL (NEGATIVE); UROBILINOGEN,URINE 0.2 EU/dL (0.2-1.0)
[2023-09-26 14:14] LABS: PROTHROMBIN TIME 10.5 sec (9.2-10.6)
[2023-09-26 14:20] LABS: AMORPHOUS SEDIMENT,URINE NOT SEEN; BACTERIA,URINE RARE; EPITHELIAL CELLS,URINE RARE; MUCUS,URINE NOT SEEN; RBC,URINE 20-30 (0-5); WBC,URINE 0-5 (0-5)
[2023-09-26 14:20] LABS: ALANINE AMINOTRANSFERASE,ALT 46 U/L (12-78); ALBUMIN 3.8 g/dL (3.4-5.0); ALKALINE PHOSPHATASE 105 U/L (46-116); ASPARTATE AMNIOTRANSFERASE,AST 20 U/L (15-37); BLOOD UREA NITROGEN,BUN 9 mg/dL (7-18); CALCIUM 9.2 mg/dL (8.5-10.1); CARBON DIOXIDE,CO2 26 mmol/L (21-32); CHLORIDE,CL 103 mmol/L (100-108); CREATININE 1.1 mg/dL (0.8-1.3); EST CRCL DRUG DOSING (CG) 79.27 mL/min; ESTIMATED GFR 80 mL/min (>60); GLUCOSE RANDOM 176 mg/dL (74-106); POTASSIUM,K 3.6 mmol/L (3.6-5.2); PROTEIN TOTAL,TP 7.7 g/dL (6.4-8.2); SODIUM,NA 142 mmol/L (140-148); TROPONIN I HIGH SENSITIVITY 19.1 pg/mL (<=60.3)
[2023-09-26 15:06] LABS: CORONAVIRUS COVID-19 NAA NEGATIVE (NEGATIVE); INFLUENZA A NAA NEGATIVE (NEGATIVE); INFLUENZA B NAA NEGATIVE (NEGATIVE); RESPIRATORY SYNCYTIAL VIR NAA NEGATIVE (NEGATIVE)
[2023-09-26] MEDS: Prochlorperazine 10 MG/2 ML SDV IVPUSH ONE (15:46)
[2023-09-26] MEDS: Sodium Chloride 0.9% 10 ML Syringe FLUSH ONE (16:03)
[2023-09-26] MEDS: Iopamidol 612 MG/ML 100 ML Bottle IV ONE (16:03)
[2023-09-26] MEDS: Sodium Chloride 0.9% 100 ML IV ONE (16:03)
[2023-09-26 16:33] VITALS: PULSE 82
[2023-09-26 16:35] VITALS: BP 151/92
[2023-09-26 17:07] LABS: AMPHETAMINES SCREEN, URINE NEGATIVE (NEGATIVE); BARBITURATE SCREEN,URINE NEGATIVE (NEGATIVE); BENZODIAZEPINES SCREEN,URINE NEGATIVE (NEGATIVE); METHADONE SCREEN, URINE NEGATIVE (NEGATIVE); METHAMPHETAMINES SCREEN, URINE NEGATIVE (NEGATIVE); OXYCODONE SCREEN,URINE NEGATIVE (NEGATIVE); PROPOXYPHENE SCREEN,URINE NEGATIVE (NEGATIVE); THC SCREEN,URINE 50 NG/ML PRESUMPTIVE POSITIVE (NEGATIVE)
== END 2023-09-26 17:54 | disposition home or self-care (01) ==
LOC: JP.ED 12:37
DX: F12.90 Cannabis use, unspecified, uncomplicated (principal); R11.10 Vomiting, unspecified; I10 Essential (primary) hypertension; I25.2 Old myocardial infarction; F17.210 Nicotine dependence, cigarettes, uncomplicated; E11.9 Type 2 diabetes mellitus without complications; Z95.1 Presence of aortocoronary bypass graft; Z86.16 Personal history of COVID-19; Z79.82 Long term (current) use of aspirin; Z79.899 Other long term (current) drug therapy
CPT/HCPCS: 0241U; 36415; 71045; 74177; 80053; 80305; 80307; 81001; 82803; 83605; 83690; 84145; 84484; 85025; 85610; 93005; 96361; 96374; 96375; 99284; J0780; J1170; J2405; J3490; J7030; Q9967; 93010

== ENCOUNTER 2023-12-03 15:28 | Emergency (ER) | payer MEDICAID ==
[2023-12-03 15:55] LABS: BASOPHILS ABSOLUTE AUTO 0.07 K/uL (0.00-0.10); BASOPHILS PERCENT AUTO 0.5 % (0.1-1.3); EOSINOPHILS ABSOLUTE AUTO 0.06 K/uL (0.00-0.40); EOSINOPHILS PERCENT AUTO 0.4 % (0.0-5.4); HEMATOCRIT 48.5 % (38.4-49.7); HEMOGLOBIN 17.4 g/dL (12.9-16.9); IMMATURE GRAN ABSOLUTE AUTO 0.06 K/uL (0.00-0.23); IMMATURE GRAN PERCENT AUTO 0.4 % (0.0-0.7); LYMPHOCYTES ABSOLUTE AUTO 1.31 K/uL (0.8-3.3); LYMPHOCYTES PERCENT AUTO 9.2 % (11.4-47.7); MEAN CORPUSCULAR HEMOGLOBIN 32.3 pg (31.6-35.5); MEAN CORPUSCULAR HGB CONC 35.9 g/dL (31.6-35.5); MEAN CORPUSCULAR VOLUME 90.1 fL (81.4-99.0); MONOCYTES ABSOLUTE AUTO 0.53 K/uL (0.20-0.90); MONOCYTES PERCENT AUTO 3.7 % (3.3-12.6); NEUTROPHILS ABSOLUTE AUTO 12.15 K/uL (1.0-7.6); NEUTROPHILS PERCENT AUTO 85.8 % (40.0-78.1); PLATELET COUNT,PLT 345 K/uL (130-375); RED BLOOD CELL COUNT 5.38 M/uL (4.14-5.76); WHITE BLOOD CELL COUNT,WBC 14.2 K/uL (3.2-11.0)
[2023-12-03] MEDS: Ondansetron 4 MG/2 ML SDV IVPUSH ONE (15:55)
[2023-12-03] MEDS: Sodium Chloride 0.9% 1,000 ML IV ONE (15:55)
[2023-12-03 16:13] LABS: A/G RATIO 0.9 (1.2-2.2); ALANINE AMINOTRANSFERASE,ALT 41 U/L (12-78); ALBUMIN 3.7 g/dL (3.4-5.0); ALKALINE PHOSPHATASE 108 U/L (46-116); ANION GAP 17.8 mmol/L (5.0-14.0); ASPARTATE AMNIOTRANSFERASE,AST 17 U/L (15-37); BILIRUBIN TOTAL 0.9 mg/dL (0.2-1.0); BLOOD UREA NITROGEN,BUN 13 mg/dL (7-18); C-REACTIVE PROTEIN < 0.50 mg/dL (<0.50); CALCIUM 9.8 mg/dL (8.5-10.1); CARBON DIOXIDE,CO2 24 mmol/L (21-32); CHLORIDE,CL 101 mmol/L (100-108); EST CRCL DRUG DOSING (CG) 87.19 mL/min; ESTIMATED GFR 89 mL/min (>60); GLUCOSE RANDOM 226 mg/dL (74-106); POTASSIUM,K 3.8 mmol/L (3.6-5.2); PROTEIN TOTAL,TP 7.9 g/dL (6.4-8.2); SODIUM,NA 139 mmol/L (140-148); TROPONIN I HIGH SENSITIVITY 11.9 pg/mL (<=60.3)
[2023-12-03 16:15] LABS: LACTIC ACID 2.6 mmol/L (0.4-2.0)
[2023-12-03] MEDS ORDERED: Piperacillin/Tazobactam 3.375 GM in Sodium Chloride 0.9% 50 ML IV SCH (16:30)
[2023-12-03] MEDS ORDERED: Sodium Chloride 0.9% 10 ML Syringe FLUSH PRN (16:36)
[2023-12-03] MEDS: Iopamidol 612 MG/ML 100 ML Bottle IV SCH (16:57)
[2023-12-03] MEDS: Sodium Chloride 0.9% 10 ML Syringe FLUSH PRN (16:58)
[2023-12-03] MEDS: Sodium Chloride 0.9% 100 ML IV SCH (16:58)
[2023-12-03] MEDS ORDERED: Piperacillin/Tazobactam 4.5 GM in Sodium Chloride 0.9% 50 ML IV ONE (17:00)
[2023-12-03] MEDS ORDERED: Piperacillin/Tazobactam 4.5 GM in Sodium Chloride 0.9% 100 ML IV ONE (17:00)
[2023-12-03] MEDS: Piperacillin/Tazobactam 3.375 GM in Sodium Chloride 0.9% 50 ML IV ONE (17:08)
[2023-12-03] MEDS: droPERidol 5 MG/2 ML SDV IVPUSH ONE (18:15)
[2023-12-03] MEDS: Metoclopramide 10 MG/2 ML SDV IVPUSH ONE (18:16)
[2023-12-03 18:26] VITALS: BP 151/85; PULSE 79
[2023-12-03 19:33] LABS: BILIRUBIN,URINE NEGATIVE (NEGATIVE); COLOR,URINE YELLOW (YELLOW); GLUCOSE,URINE 500 mg/dL (NEGATIVE); KETONES,URINE 80 mg/dL (NEGATIVE); LEUKOCYTE ESTERASE,URINE NEGATIVE (NEGATIVE); NITRITE,URINE NEGATIVE (NEGATIVE); OCCULT BLOOD,URINE MODERATE (NEGATIVE); PROTEIN,URINE >=300 mg/dL (NEGATIVE); UROBILINOGEN,URINE 0.2 EU/dL (0.2-1.0)
[2023-12-03 19:38] LABS: AMORPHOUS SEDIMENT,URINE NOT SEEN; APPEARANCE,URINE SLIGHTLY CLOUDY (CLEAR); BACTERIA,URINE FEW; EPITHELIAL CELLS,URINE NOT SEEN; MUCUS,URINE NOT SEEN; WBC,URINE 0-5 (0-5)
[2023-12-03 19:38] LABS: THC SCREEN,URINE 50 NG/ML PRESUMPTIVE POSITIVE (NEGATIVE)
[2023-12-03 19:39] LABS: AMPHETAMINES SCREEN, URINE NEGATIVE (NEGATIVE); BARBITURATE SCREEN,URINE NEGATIVE (NEGATIVE); BENZODIAZEPINES SCREEN,URINE NEGATIVE (NEGATIVE); METHADONE SCREEN, URINE NEGATIVE (NEGATIVE); METHAMPHETAMINES SCREEN, URINE NEGATIVE (NEGATIVE); OXYCODONE SCREEN,URINE NEGATIVE (NEGATIVE); PROPOXYPHENE SCREEN,URINE NEGATIVE (NEGATIVE)
[2023-12-03 19:54] LABS: HEMATOCRIT 41.6 % (38.4-49.7); HEMOGLOBIN 14.8 g/dL (12.9-16.9); MEAN CORPUSCULAR HEMOGLOBIN 32.2 pg (31.6-35.5); MEAN CORPUSCULAR HGB CONC 35.6 g/dL (31.6-35.5); MEAN CORPUSCULAR VOLUME 90.6 fL (81.4-99.0); RED BLOOD CELL COUNT 4.59 M/uL (4.14-5.76); WHITE BLOOD CELL COUNT,WBC 12.7 K/uL (3.2-11.0)
[2023-12-03] MEDS ORDERED: Ondansetron 4 MG Tab.DIS ONE (20:28)
[2023-12-03] MEDS: Ondansetron 4 MG Tab.DIS PO ONE (20:31)
[2023-12-03] MEDS ORDERED: Piperacillin/Tazobactam 4.5 GM in Sodium Chloride 0.9% 100 ML IV SCH (21:00)
== END 2023-12-03 20:35 ==
LOC: JP.ED 15:28
DX: E86.0 Dehydration (principal); R10.84 Generalized abdominal pain; I10 Essential (primary) hypertension; I25.2 Old myocardial infarction; E11.9 Type 2 diabetes mellitus without complications; Z79.899 Other long term (current) drug therapy; E78.00 Pure hypercholesterolemia, unspecified; Z79.82 Long term (current) use of aspirin; Z79.4 Long term (current) use of insulin
CPT/HCPCS: 36415; 74177; 80053; 80305; 80307; 81001; 83605; 84484; 85025; 85027; 86140; 87040; 96361; 96365; 96375; 99285; J1790; J2405; J2543; J3490; J7030; Q0162; Q9967; 99284

== ENCOUNTER 2023-12-23 10:48 | Emergency (ER) | payer MEDICAID ==
[2023-12-23 10:58] VITALS: BP 148/101; PULSE 128
== END 2023-12-23 13:22 | disposition left against medical advice (07) ==
LOC: JP.ED 10:48
DX: Z53.21 Procedure and treatment not carried out due to patient leaving prior to being seen by health care provider (principal)

== ENCOUNTER 2024-02-01 10:27 | Emergency (ER) | payer MEDICAID ==
[2024-02-01] MEDS ORDERED: Sodium Chloride 0.9% 10 ML Syringe FLUSH PRN (11:30)
[2024-02-01 11:43] LABS: BASOPHILS ABSOLUTE AUTO 0.07 K/uL (0.00-0.10); BASOPHILS PERCENT AUTO 0.4 % (0.1-1.3); EOSINOPHILS ABSOLUTE AUTO 0.16 K/uL (0.00-0.40); EOSINOPHILS PERCENT AUTO 0.9 % (0.0-5.4); HEMATOCRIT 43.6 % (38.4-49.7); HEMOGLOBIN 14.9 g/dL (12.9-16.9); IMMATURE GRAN ABSOLUTE AUTO 0.08 K/uL (0.00-0.23); IMMATURE GRAN PERCENT AUTO 0.5 % (0.0-0.7); LYMPHOCYTES ABSOLUTE AUTO 0.71 K/uL (0.8-3.3); LYMPHOCYTES PERCENT AUTO 4.1 % (11.4-47.7); MEAN CORPUSCULAR HEMOGLOBIN 30.8 pg (31.6-35.5); MEAN CORPUSCULAR HGB CONC 34.2 g/dL (31.6-35.5); MEAN CORPUSCULAR VOLUME 90.1 fL (81.4-99.0); MONOCYTES ABSOLUTE AUTO 0.91 K/uL (0.20-0.90); MONOCYTES PERCENT AUTO 5.3 % (3.3-12.6); NEUTROPHILS ABSOLUTE AUTO 15.31 K/uL (1.0-7.6); NEUTROPHILS PERCENT AUTO 88.8 % (40.0-78.1); PLATELET COUNT,PLT 362 K/uL (130-375); RED BLOOD CELL COUNT 4.84 M/uL (4.14-5.76); WHITE BLOOD CELL COUNT,WBC 17.2 K/uL (3.2-11.0)
[2024-02-01] MEDS: Loperamide 2 MG Cap PO ONE (11:56)
[2024-02-01] MEDS: Ondansetron 4 MG/2 ML SDV IVPUSH ONE (11:56)
[2024-02-01] MEDS: Lactated Ringers 1,000 ML IV SCH (11:56)
[2024-02-01 12:00] LABS: A/G RATIO 1.1 (1.2-2.2); ALANINE AMINOTRANSFERASE,ALT 30 U/L (12-78); ALKALINE PHOSPHATASE 98 U/L (46-116); ANION GAP 13.3 mmol/L (5.0-14.0); ASPARTATE AMNIOTRANSFERASE,AST 16 U/L (15-37); BILIRUBIN TOTAL 0.4 mg/dL (0.2-1.0); BLOOD UREA NITROGEN,BUN 18 mg/dL (7-18); CALCIUM 9.6 mg/dL (8.5-10.1); CARBON DIOXIDE,CO2 26 mmol/L (21-32); CHLORIDE,CL 104 mmol/L (100-108); ESTIMATED GFR 89 mL/min (>60); GLUCOSE RANDOM 255 mg/dL (74-106); POTASSIUM,K 4.4 mmol/L (3.6-5.2); PROTEIN TOTAL,TP 7.5 g/dL (6.4-8.2); SODIUM,NA 143 mmol/L (140-148)
[2024-02-01] MEDS: fentaNYL 100 MCG/2 ML SDV IVPUSH ONE (12:00)
[2024-02-01] MEDS: Iopamidol 612 MG/ML 100 ML Bottle IV SCH (12:29)
[2024-02-01] MEDS: Sodium Chloride 0.9% 100 ML IV SCH (12:29)
[2024-02-01] MEDS: Sodium Chloride 0.9% 10 ML Syringe FLUSH PRN (12:29)
[2024-02-01 14:16] LABS: APPEARANCE,URINE CLEAR (CLEAR); BILIRUBIN,URINE NEGATIVE (NEGATIVE); COLOR,URINE YELLOW (YELLOW); GLUCOSE,URINE 500 mg/dL (NEGATIVE); KETONES,URINE 40 mg/dL (NEGATIVE); LEUKOCYTE ESTERASE,URINE NEGATIVE (NEGATIVE); NITRITE,URINE NEGATIVE (NEGATIVE); OCCULT BLOOD,URINE MODERATE (NEGATIVE); PROTEIN,URINE >=300 mg/dL (NEGATIVE); UROBILINOGEN,URINE 0.2 EU/dL (0.2-1.0)
[2024-02-01 14:26] LABS: AMORPHOUS SEDIMENT,URINE NOT SEEN; BACTERIA,URINE NOT SEEN; EPITHELIAL CELLS,URINE RARE; MUCUS,URINE NOT SEEN; RBC,URINE 20-30 (0-5); WBC,URINE 0-5 (0-5)
[2024-02-01 14:52] VITALS: BP 161/85; PULSE 85
[2024-02-01] MEDS: droPERidol 5 MG/2 ML SDV IVPUSH ONE (14:53)
[2024-02-01] MEDS: HYDROmorphone 0.5 MG/0.5 ML Syringe IVPUSH ONE (14:54)
== END 2024-02-01 16:09 | disposition home or self-care (01) ==
LOC: JP.ED 10:27
DX: K52.9 Noninfective gastroenteritis and colitis, unspecified (principal); E78.00 Pure hypercholesterolemia, unspecified; I25.10 Atherosclerotic heart disease of native coronary artery without angina pectoris; I10 Essential (primary) hypertension; I25.2 Old myocardial infarction; E11.9 Type 2 diabetes mellitus without complications; F17.210 Nicotine dependence, cigarettes, uncomplicated; Z79.899 Other long term (current) drug therapy; Z79.82 Long term (current) use of aspirin; Z79.4 Long term (current) use of insulin; Z86.16 Personal history of COVID-19
CPT/HCPCS: 36415; 74177; 80053; 81001; 83605; 83690; 84484; 85025; 96361; 96374; 96375; 99284; A9270; J1170; J1790; J2405; J3010; J3490; J7120; Q9967

== ENCOUNTER 2024-04-02 11:49 | Emergency (ER) | payer MEDICAID ==
[2024-04-02] MEDS ORDERED: Sodium Chloride 0.9% 10 ML Syringe FLUSH PRN (12:13)
[2024-04-02] MEDS ORDERED: Nitroglycerin 0.4 MG Tab.SL SL PRN (12:13)
[2024-04-02] MEDS: Aspirin 81 MG Tab.Chew PO ONE (12:28)
[2024-04-02] MEDS: Ondansetron 4 MG/2 ML SDV IVPUSH ONE (12:28)
[2024-04-02] MEDS: Morphine 4 MG/ML Syringe IVPUSH PRN (12:29)
[2024-04-02] MEDS: Lactated Ringers 1,000 ML IV SCH (12:30)
[2024-04-02 12:41] LABS: BASOPHILS ABSOLUTE AUTO 0.05 K/uL (0.00-0.10); BASOPHILS PERCENT AUTO 0.5 % (0.1-1.3); HEMATOCRIT 50.6 % (38.4-49.7); IMMATURE GRAN ABSOLUTE AUTO 0.04 K/uL (0.00-0.23); IMMATURE GRAN PERCENT AUTO 0.4 % (0.0-0.7); LYMPHOCYTES ABSOLUTE AUTO 0.91 K/uL (0.8-3.3); LYMPHOCYTES PERCENT AUTO 8.8 % (11.4-47.7); MEAN CORPUSCULAR HEMOGLOBIN 31.2 pg (31.6-35.5); MEAN CORPUSCULAR VOLUME 86.6 fL (81.4-99.0); MONOCYTES ABSOLUTE AUTO 0.25 K/uL (0.20-0.90); MONOCYTES PERCENT AUTO 2.4 % (3.3-12.6); NEUTROPHILS ABSOLUTE AUTO 9.13 K/uL (1.0-7.6); NEUTROPHILS PERCENT AUTO 87.9 % (40.0-78.1); PLATELET COUNT,PLT 318 K/uL (130-375); RED BLOOD CELL COUNT 5.84 M/uL (4.14-5.76); WHITE BLOOD CELL COUNT,WBC 10.4 K/uL (3.2-11.0)
[2024-04-02 12:48] LABS: HEMOGLOBIN 18.2 g/dL (12.9-16.9)
[2024-04-02 13:05] LABS: ALANINE AMINOTRANSFERASE,ALT 24 U/L (12-78); ALBUMIN 3.9 g/dL (3.4-5.0); ALKALINE PHOSPHATASE 106 U/L (46-116); ASPARTATE AMNIOTRANSFERASE,AST 16 U/L (15-37); BILIRUBIN TOTAL 1.2 mg/dL (0.2-1.0); BLOOD UREA NITROGEN,BUN 19 mg/dL (7-18); CALCIUM 9.7 mg/dL (8.5-10.1); CARBON DIOXIDE,CO2 18 mmol/L (21-32); CHLORIDE,CL 99 mmol/L (100-108); CREATININE 1.2 mg/dL (0.8-1.3); EST CRCL DRUG DOSING (CG) 72.66 mL/min; ESTIMATED GFR 72 mL/min (>60); GLUCOSE RANDOM 179 mg/dL (74-106); POTASSIUM,K 3.4 mmol/L (3.6-5.2); PROTEIN TOTAL,TP 7.8 g/dL (6.4-8.2); SODIUM,NA 140 mmol/L (140-148)
[2024-04-02 13:06] LABS: ANION GAP 26.4 mmol/L (5.0-14.0)
[2024-04-02] MEDS: Sodium Chloride 0.9% 80 ML IV SCH (13:32)
[2024-04-02] MEDS: Iopamidol 612 MG/ML 100 ML Bottle IV ONE (13:32)
[2024-04-02] MEDS ORDERED: Piperacillin/Tazobactam 4.5 GM in Sodium Chloride 0.9% 100 ML IV ONE (14:01)
[2024-04-02] MEDS: droPERidol 5 MG/2 ML SDV IVPUSH ONE (14:19)
[2024-04-02 14:55] LABS: LACTIC ACID 1.8 mmol/L (0.4-2.0)
[2024-04-02] MEDS: HYDROmorphone 1 MG/ML Syringe IVPUSH ONE (15:03)
[2024-04-02 15:31] LABS: APPEARANCE,URINE CLEAR (CLEAR); BILIRUBIN,URINE NEGATIVE (NEGATIVE); COLOR,URINE YELLOW (YELLOW); GLUCOSE,URINE 500 mg/dL (NEGATIVE); KETONES,URINE 80 mg/dL (NEGATIVE); LEUKOCYTE ESTERASE,URINE NEGATIVE (NEGATIVE); NITRITE,URINE NEGATIVE (NEGATIVE); OCCULT BLOOD,URINE MODERATE (NEGATIVE); PH,URINE 5.5 (5.0-8.0); PROTEIN,URINE >=300 mg/dL (NEGATIVE); UROBILINOGEN,URINE 0.2 EU/dL (0.2-1.0)
[2024-04-02] MEDS: Lactated Ringers 1,000 ML IV ONE (15:31)
[2024-04-02 15:54] LABS: AMORPHOUS SEDIMENT,URINE NOT SEEN; BACTERIA,URINE FEW; EPITHELIAL CELLS,URINE RARE; MUCUS,URINE RARE; WBC,URINE 0-5 (0-5)
[2024-04-02 16:41] VITALS: BP 175/90; PULSE 96
== END 2024-04-02 18:13 | disposition home or self-care (01) ==
LOC: JP.ED 11:49
DX: R11.2 Nausea with vomiting, unspecified (principal); I10 Essential (primary) hypertension; I25.2 Old myocardial infarction; I25.10 Atherosclerotic heart disease of native coronary artery without angina pectoris; E78.00 Pure hypercholesterolemia, unspecified; E11.9 Type 2 diabetes mellitus without complications; K21.9 Gastro-esophageal reflux disease without esophagitis; F17.210 Nicotine dependence, cigarettes, uncomplicated; Z86.16 Personal history of COVID-19; Z95.5 Presence of coronary angioplasty implant and graft; Z79.82 Long term (current) use of aspirin; Z79.899 Other long term (current) drug therapy; Z79.4 Long term (current) use of insulin
CPT/HCPCS: 36415; 71045; 74177; 80053; 81001; 82947; 83605; 83690; 84145; 84484; 85025; 86140; 87635; 93005; 96361; 96374; 96375; 99284; A9270; J1170; J1790; J2270; J2405; J3490; J7120; Q9967; U0002

== ENCOUNTER 2024-04-03 13:39 | Emergency (ER) | payer MEDICAID ==
[2024-04-03] MEDS: Morphine 10 MG/ML Syringe IVPUSH ONE ×2 (16:20→17:53)
[2024-04-03] MEDS: Ondansetron 4 MG/2 ML SDV IVPUSH PRN (16:20)
[2024-04-03] MEDS: Sodium Chloride 0.9% 1,000 ML IV ONE (16:21)
[2024-04-03 16:22] LABS: BASOPHILS ABSOLUTE AUTO 0.04 K/uL (0.00-0.10); BASOPHILS PERCENT AUTO 0.3 % (0.1-1.3); HEMOGLOBIN 17.8 g/dL (12.9-16.9); IMMATURE GRAN ABSOLUTE AUTO 0.07 K/uL (0.00-0.23); IMMATURE GRAN PERCENT AUTO 0.5 % (0.0-0.7); LYMPHOCYTES PERCENT AUTO 5.3 % (11.4-47.7); MEAN CORPUSCULAR HEMOGLOBIN 31.1 pg (31.6-35.5); MEAN CORPUSCULAR HGB CONC 36.3 g/dL (31.6-35.5); MEAN CORPUSCULAR VOLUME 85.7 fL (81.4-99.0); MONOCYTES ABSOLUTE AUTO 0.61 K/uL (0.20-0.90); NEUTROPHILS ABSOLUTE AUTO 13.55 K/uL (1.0-7.6); NEUTROPHILS PERCENT AUTO 89.9 % (40.0-78.1); PLATELET COUNT,PLT 337 K/uL (130-375); RED BLOOD CELL COUNT 5.72 M/uL (4.14-5.76); WHITE BLOOD CELL COUNT,WBC 15.1 K/uL (3.2-11.0)
[2024-04-03] MEDS: Alum Hydrox/Mag Hydrox/Simeth 15 ML, Lidocaine 2% 15 ML PO ONE (16:30)
[2024-04-03 16:57] LABS: ALANINE AMINOTRANSFERASE,ALT 23 U/L (12-78); ALKALINE PHOSPHATASE 104 U/L (46-116); ASPARTATE AMNIOTRANSFERASE,AST 33 U/L (15-37); BILIRUBIN TOTAL 1.1 mg/dL (0.2-1.0); BLOOD UREA NITROGEN,BUN 18 mg/dL (7-18); CALCIUM 9.7 mg/dL (8.5-10.1); CARBON DIOXIDE,CO2 22 mmol/L (21-32); CHLORIDE,CL 98 mmol/L (100-108); CREATININE 1.2 mg/dL (0.8-1.3); EST CRCL DRUG DOSING (CG) 72.66 mL/min; ESTIMATED GFR 72 mL/min (>60); GLUCOSE RANDOM 205 mg/dL (74-106); POTASSIUM,K 3.7 mmol/L (3.6-5.2); PROTEIN TOTAL,TP 7.9 g/dL (6.4-8.2); SODIUM,NA 141 mmol/L (140-148)
[2024-04-03 17:02] LABS: ANION GAP 24.7 mmol/L (5.0-14.0); C-REACTIVE PROTEIN < 0.50 mg/dL (<0.50); SEDIMENTATION RATE MANUAL 5 mm/hr (0-20)
[2024-04-03] MEDS ORDERED: Metoprolol Tartrate 5 MG in Sodium Chloride 0.9% 50 ML IV ONE (17:42)
[2024-04-03] MEDS: Metoprolol Tartrate 5 MG/5 ML SDV IVPUSH ONE (17:54)
[2024-04-03] MEDS: Heparin Sodium 5,000 Units/ML Vial IVPUSH ONE (18:24)
[2024-04-03] MEDS: Aspirin 81 MG Tab.Chew PO ONE (18:25)
[2024-04-03] MEDS: Sodium Chloride 0.9% 1,000 ML IV SCH (18:30)
[2024-04-03] MEDS: Heparin Sodium/D5W 25,000 UNITS/500 ML BAG IV SCH (18:52)
[2024-04-03 18:57] VITALS: BP 110/68; PULSE 92
== END 2024-04-03 20:28 ==
LOC: JP.ED 13:39
DX: I24.9 Acute ischemic heart disease, unspecified (principal); R11.2 Nausea with vomiting, unspecified; I10 Essential (primary) hypertension; I25.10 Atherosclerotic heart disease of native coronary artery without angina pectoris; I25.2 Old myocardial infarction; E78.00 Pure hypercholesterolemia, unspecified; E11.9 Type 2 diabetes mellitus without complications; F17.210 Nicotine dependence, cigarettes, uncomplicated; Z86.16 Personal history of COVID-19; Z95.1 Presence of aortocoronary bypass graft; Z79.899 Other long term (current) drug therapy; Z79.4 Long term (current) use of insulin; Z79.82 Long term (current) use of aspirin; Z79.84 Long term (current) use of oral hypoglycemic drugs
CPT/HCPCS: 36415; 71045; 80053; 83605; 83690; 84484; 85025; 85651; 86140; 93005; 96361; 96365; 96366; 96375; 96376; 99285; A9270; J1644; J2270; J2405; J3490; J7030; J7050

== ENCOUNTER 2024-07-07 12:11 | Emergency (ER) | payer MEDICAID ==
[2024-07-07 13:08] LABS: BASOPHILS ABSOLUTE AUTO 0.07 K/uL (0.00-0.10); BASOPHILS PERCENT AUTO 0.7 % (0.1-1.3); EOSINOPHILS ABSOLUTE AUTO 0.18 K/uL (0.00-0.40); EOSINOPHILS PERCENT AUTO 1.7 % (0.0-5.4); HEMATOCRIT 48.8 % (38.4-49.7); HEMOGLOBIN 17.1 g/dL (12.9-16.9); IMMATURE GRAN ABSOLUTE AUTO 0.04 K/uL (0.00-0.23); IMMATURE GRAN PERCENT AUTO 0.4 % (0.0-0.7); LYMPHOCYTES ABSOLUTE AUTO 0.82 K/uL (0.8-3.3); LYMPHOCYTES PERCENT AUTO 7.7 % (11.4-47.7); MEAN CORPUSCULAR HEMOGLOBIN 32.2 pg (31.6-35.5); MEAN CORPUSCULAR VOLUME 91.9 fL (81.4-99.0); MONOCYTES ABSOLUTE AUTO 0.53 K/uL (0.20-0.90); NEUTROPHILS ABSOLUTE AUTO 9.01 K/uL (1.0-7.6); NEUTROPHILS PERCENT AUTO 84.5 % (40.0-78.1); PLATELET COUNT,PLT 279 K/uL (130-375); RED BLOOD CELL COUNT 5.31 M/uL (4.14-5.76); WHITE BLOOD CELL COUNT,WBC 10.7 K/uL (3.2-11.0)
[2024-07-07] MEDS: Sodium Chloride 0.9% 1,000 ML IV SCH (13:11)
[2024-07-07] MEDS: HYDROmorphone 0.5 MG/0.5 ML Syringe IVPUSH ONE (13:11)
[2024-07-07] MEDS: Prochlorperazine 10 MG/2 ML SDV IVPUSH ONE (13:11)
[2024-07-07] MEDS: Famotidine 20 MG/2 ML SDV IVPUSH ONE (13:11)
[2024-07-07] MEDS: Sucralfate 1 GM Tab PO ONE (13:11)
[2024-07-07 13:36] LABS: A/G RATIO 0.9 (1.2-2.2); ALANINE AMINOTRANSFERASE,ALT 25 U/L (12-78); ALBUMIN 3.6 g/dL (3.4-5.0); ALKALINE PHOSPHATASE 101 U/L (46-116); ANION GAP 9.3 mmol/L (5.0-14.0); ASPARTATE AMNIOTRANSFERASE,AST 19 U/L (15-37); BILIRUBIN TOTAL 0.7 mg/dL (0.2-1.0); BLOOD UREA NITROGEN,BUN 6 mg/dL (7-18); CARBON DIOXIDE,CO2 31 mmol/L (21-32); CHLORIDE,CL 102 mmol/L (100-108); CREATININE 0.9 mg/dL (0.8-1.3); EST CRCL DRUG DOSING (CG) 95.76 mL/min; ESTIMATED GFR 101 mL/min (>60); GLUCOSE RANDOM 233 mg/dL (74-106); POTASSIUM,K 3.8 mmol/L (3.6-5.2); PROTEIN TOTAL,TP 7.5 g/dL (6.4-8.2); SODIUM,NA 142 mmol/L (140-148)
[2024-07-07 13:38] LABS: TROPONIN I HIGH SENSITIVITY 148.5 pg/mL (<=60.3)
[2024-07-07 14:03] LABS: APPEARANCE,URINE CLEAR (CLEAR); BILIRUBIN,URINE NEGATIVE (NEGATIVE); COLOR,URINE YELLOW (YELLOW); GLUCOSE,URINE 500 mg/dL (NEGATIVE); KETONES,URINE 15 mg/dL (NEGATIVE); LEUKOCYTE ESTERASE,URINE NEGATIVE (NEGATIVE); NITRITE,URINE NEGATIVE (NEGATIVE); OCCULT BLOOD,URINE MODERATE (NEGATIVE); PROTEIN,URINE >=300 mg/dL (NEGATIVE); UROBILINOGEN,URINE 0.2 EU/dL (0.2-1.0)
[2024-07-07 14:09] LABS: AMPHETAMINES SCREEN, URINE NEGATIVE (NEGATIVE); BARBITURATE SCREEN,URINE NEGATIVE (NEGATIVE); BENZODIAZEPINES SCREEN,URINE NEGATIVE (NEGATIVE); METHADONE SCREEN, URINE NEGATIVE (NEGATIVE); METHAMPHETAMINES SCREEN, URINE NEGATIVE (NEGATIVE); OXYCODONE SCREEN,URINE NEGATIVE (NEGATIVE); PROPOXYPHENE SCREEN,URINE NEGATIVE (NEGATIVE); THC SCREEN,URINE 50 NG/ML PRESUMPTIVE POSITIVE (NEGATIVE)
[2024-07-07 14:12] LABS: AMORPHOUS SEDIMENT,URINE NOT SEEN; BACTERIA,URINE NOT SEEN; EPITHELIAL CELLS,URINE RARE; MUCUS,URINE NOT SEEN; RBC,URINE 40-50 (0-5); WBC,URINE 0-5 (0-5)
[2024-07-07 15:11] VITALS: BP 153/92; PULSE 83
== END 2024-07-07 16:31 | disposition home or self-care (01) ==
LOC: JP.ED 12:11
DX: K27.9 Peptic ulcer, site unspecified, unspecified as acute or chronic, without hemorrhage or perforation (principal); I10 Essential (primary) hypertension; I25.2 Old myocardial infarction; I25.10 Atherosclerotic heart disease of native coronary artery without angina pectoris; E78.00 Pure hypercholesterolemia, unspecified; E11.9 Type 2 diabetes mellitus without complications; Z79.82 Long term (current) use of aspirin; Z79.4 Long term (current) use of insulin; Z79.899 Other long term (current) drug therapy; Z86.16 Personal history of COVID-19
CPT/HCPCS: 36415; 74176; 80053; 80305; 80307; 81001; 83605; 83690; 84145; 84484; 85025; 93005; 96361; 96374; 96375; 99284; A9270; J0780; J3490; J7030

== ENCOUNTER 2024-07-09 12:57 | Emergency (ER) | payer MEDICAID ==
[2024-07-09 13:46] LABS: BASOPHILS ABSOLUTE AUTO 0.03 K/uL (0.00-0.10); BASOPHILS PERCENT AUTO 0.2 % (0.1-1.3); HEMATOCRIT 48.4 % (38.4-49.7); HEMOGLOBIN 17.1 g/dL (12.9-16.9); IMMATURE GRAN ABSOLUTE AUTO 0.06 K/uL (0.00-0.23); IMMATURE GRAN PERCENT AUTO 0.5 % (0.0-0.7); LYMPHOCYTES ABSOLUTE AUTO 0.79 K/uL (0.8-3.3); LYMPHOCYTES PERCENT AUTO 5.9 % (11.4-47.7); MEAN CORPUSCULAR HEMOGLOBIN 32.3 pg (31.6-35.5); MEAN CORPUSCULAR HGB CONC 35.3 g/dL (31.6-35.5); MEAN CORPUSCULAR VOLUME 91.5 fL (81.4-99.0); MONOCYTES ABSOLUTE AUTO 0.62 K/uL (0.20-0.90); MONOCYTES PERCENT AUTO 4.7 % (3.3-12.6); NEUTROPHILS ABSOLUTE AUTO 11.83 K/uL (1.0-7.6); NEUTROPHILS PERCENT AUTO 88.7 % (40.0-78.1); PLATELET COUNT,PLT 315 K/uL (130-375); RED BLOOD CELL COUNT 5.29 M/uL (4.14-5.76); WHITE BLOOD CELL COUNT,WBC 13.3 K/uL (3.2-11.0)
[2024-07-09] MEDS ORDERED: Sodium Chloride 0.9% 10 ML Syringe FLUSH PRN (13:59)
[2024-07-09 14:10] LABS: A/G RATIO 0.9 (1.2-2.2); ALANINE AMINOTRANSFERASE,ALT 18 U/L (12-78); ALBUMIN 3.2 g/dL (3.4-5.0); ALKALINE PHOSPHATASE 92 U/L (46-116); ASPARTATE AMNIOTRANSFERASE,AST 13 U/L (15-37); BLOOD UREA NITROGEN,BUN 17 mg/dL (7-18); CALCIUM 8.9 mg/dL (8.5-10.1); CARBON DIOXIDE,CO2 26 mmol/L (21-32); CHLORIDE,CL 98 mmol/L (100-108); EST CRCL DRUG DOSING (CG) 86.18 mL/min; ESTIMATED GFR 89 mL/min (>60); GLUCOSE RANDOM 228 mg/dL (74-106); POTASSIUM,K 3.8 mmol/L (3.6-5.2); PROTEIN TOTAL,TP 6.9 g/dL (6.4-8.2); SODIUM,NA 139 mmol/L (140-148); TROPONIN I HIGH SENSITIVITY 58.8 pg/mL (<=60.3)
[2024-07-09 14:11] LABS: ANION GAP 18.8 mmol/L (5.0-14.0)
[2024-07-09] MEDS: Sodium Chloride 0.9% 1,000 ML IV ONE (14:39)
[2024-07-09] MEDS: Alum Hydrox/Mag Hydrox/Simeth 15 ML, Lidocaine 2% 15 ML PO ONE (14:55)
[2024-07-09 15:05] VITALS: BP 196/109; PULSE 95
[2024-07-09] MEDS: Iopamidol 612 MG/ML 100 ML Bottle IV ONE (15:23)
[2024-07-09] MEDS: Sodium Chloride 0.9% 80 ML IV SCH (15:23)
[2024-07-09] MEDS: traMADol 50 MG Tab PO ONE (19:05)
== END 2024-07-09 17:00 | disposition home or self-care (01) ==
LOC: JP.ED 12:57
DX: R10.13 Epigastric pain (principal); I25.10 Atherosclerotic heart disease of native coronary artery without angina pectoris; I25.2 Old myocardial infarction; I10 Essential (primary) hypertension; E78.00 Pure hypercholesterolemia, unspecified; K21.9 Gastro-esophageal reflux disease without esophagitis; E11.9 Type 2 diabetes mellitus without complications; F17.210 Nicotine dependence, cigarettes, uncomplicated; Z86.16 Personal history of COVID-19; Z95.5 Presence of coronary angioplasty implant and graft; Z79.4 Long term (current) use of insulin; Z79.82 Long term (current) use of aspirin; Z79.84 Long term (current) use of oral hypoglycemic drugs; Z79.899 Other long term (current) drug therapy
CPT/HCPCS: 36415; 71046; 71260; 80053; 83690; 84484; 85025; 85379; 93005; 96360; 99285; A9270; J3490; J7030; Q9967

== ENCOUNTER 2024-08-15 13:49 | Inpatient (IN) | payer MEDICAID ==
[2024-08-15 15:26] LABS: BASOPHILS ABSOLUTE AUTO 0.03 K/uL (0.00-0.10); BASOPHILS PERCENT AUTO 0.2 % (0.1-1.3); EOSINOPHILS ABSOLUTE AUTO 0.04 K/uL (0.00-0.40); EOSINOPHILS PERCENT AUTO 0.2 % (0.0-5.4); HEMATOCRIT 47.7 % (38.4-49.7); HEMOGLOBIN 17.2 g/dL (12.9-16.9); IMMATURE GRAN ABSOLUTE AUTO 0.11 K/uL (0.00-0.23); IMMATURE GRAN PERCENT AUTO 0.6 % (0.0-0.7); LYMPHOCYTES ABSOLUTE AUTO 0.95 K/uL (0.8-3.3); LYMPHOCYTES PERCENT AUTO 5.3 % (11.4-47.7); MEAN CORPUSCULAR HGB CONC 36.1 g/dL (31.6-35.5); MEAN CORPUSCULAR VOLUME 88.8 fL (81.4-99.0); MONOCYTES ABSOLUTE AUTO 1.24 K/uL (0.20-0.90); NEUTROPHILS ABSOLUTE AUTO 15.47 K/uL (1.0-7.6); NEUTROPHILS PERCENT AUTO 86.7 % (40.0-78.1); PLATELET COUNT,PLT 330 K/uL (130-375); RED BLOOD CELL COUNT 5.37 M/uL (4.14-5.76); WHITE BLOOD CELL COUNT,WBC 17.8 K/uL (3.2-11.0)
[2024-08-15] MEDS: Ondansetron 4 MG/2 ML SDV IVPUSH ONE (15:27)
[2024-08-15] MEDS: Sodium Chloride 0.9% 1,000 ML IV ONE (15:27)
[2024-08-15 15:46] LABS: A/G RATIO 0.8 (1.2-2.2); ALANINE AMINOTRANSFERASE,ALT 29 U/L (12-78); ALBUMIN 3.2 g/dL (3.4-5.0); ALKALINE PHOSPHATASE 113 U/L (46-116); ANION GAP 22.4 mmol/L (5.0-14.0); ASPARTATE AMNIOTRANSFERASE,AST 19 U/L (15-37); BILIRUBIN TOTAL 1.3 mg/dL (0.2-1.0); BLOOD UREA NITROGEN,BUN 24 mg/dL (7-18); CALCIUM 8.9 mg/dL (8.5-10.1); CARBON DIOXIDE,CO2 26 mmol/L (21-32); CHLORIDE,CL 89 mmol/L (100-108); CREATININE 1.4 mg/dL (0.8-1.3); EST CRCL DRUG DOSING (CG) 61.56 mL/min; ESTIMATED GFR 59 mL/min (>60); GLUCOSE RANDOM 301 mg/dL (74-106); POTASSIUM,K 4.4 mmol/L (3.6-5.2); PROTEIN TOTAL,TP 7.1 g/dL (6.4-8.2); SODIUM,NA 133 mmol/L (140-148)
[2024-08-15] MEDS: Sodium Chloride 0.9% 10 ML Syringe FLUSH ONE (16:25)
[2024-08-15] MEDS: Sodium Chloride 0.9% 80 ML IV SCH (16:25)
[2024-08-15] MEDS: Iopamidol 612 MG/ML 100 ML Bottle IV PRN (16:25)
[2024-08-15 16:51] LABS: APPEARANCE,URINE CLEAR (CLEAR); BILIRUBIN,URINE NEGATIVE (NEGATIVE); COLOR,URINE YELLOW (YELLOW); GLUCOSE,URINE 500 mg/dL (NEGATIVE); KETONES,URINE 80 mg/dL (NEGATIVE); LEUKOCYTE ESTERASE,URINE NEGATIVE (NEGATIVE); NITRITE,URINE NEGATIVE (NEGATIVE); OCCULT BLOOD,URINE MODERATE (NEGATIVE); PROTEIN,URINE >=300 mg/dL (NEGATIVE); UROBILINOGEN,URINE 0.2 EU/dL (0.2-1.0)
[2024-08-15 16:55] LABS: AMORPHOUS SEDIMENT,URINE NOT SEEN; BACTERIA,URINE NOT SEEN; EPITHELIAL CELLS,URINE NOT SEEN; MUCUS,URINE NOT SEEN; WBC,URINE 0-5 (0-5)
[2024-08-15] MEDS: Morphine 4 MG/ML Syringe IVPUSH ONE (18:46)
[2024-08-15] MEDS: Promethazine 12.5 MG in Sodium Chloride 0.9% 50 ML IV ONE (18:46)
[2024-08-15] MEDS ORDERED: Ondansetron 4 MG Tab.DIS PO PRN (19:54)
[2024-08-15] MEDS ORDERED: Nicotine 14 MG/24 Hr Patch TRDERM PRN (19:54)
[2024-08-15] MEDS ORDERED: Sennosides/Docusate Sodium 50-8.6 MG Tab PO PRN (19:54)
[2024-08-15] MEDS ORDERED: Ondansetron 4 MG/2 ML SDV IV PRN (19:54)
[2024-08-15] MEDS ORDERED: Glucagon,Human Recombinant 1 MG Vial IM PRN (20:25)
[2024-08-15] MEDS ORDERED: 50% Dextrose in Water 50 ML Syringe IVPUSH PRN (20:25)
[2024-08-15 20:37] LABS: LACTIC ACID 2.6 mmol/L (0.4-2.0)
[2024-08-15] MEDS: Ticagrelor 90 MG Tab PO SCH (20:46)
[2024-08-15] MEDS: Pantoprazole 40 MG Vial IV SCH (20:46)
[2024-08-15] MEDS: Ciprofloxacin in D5W 400 MG in Premix Bag 1 BAG IV SCH (20:46)
[2024-08-15] MEDS ORDERED: Pregabalin 100 MG Cap PO SCH (21:00)
[2024-08-15] MEDS: Pregabalin 75 MG Cap PO SCH (21:02)
[2024-08-15] MEDS: Insulin Glargine,Human Rec. Analog 100 Units/ML 3 ML Pen SUBCUT SCH (22:17)
[2024-08-15] MEDS: metroNIDAZOLE/Normal Saline 500 MG in Premix Bag 1 BAG IV SCH (22:22)
[2024-08-16] MEDS: Acetaminophen 325 MG Tab PO PRN (00:48)
[2024-08-16] MEDS: Sodium Chloride 0.9% 1,000 ML IV SCH (02:50)
[2024-08-16] MEDS: HYDROmorphone 0.5 MG/0.5 ML Syringe IVPUSH PRN (03:15)
[2024-08-16 05:45] LABS: HEMATOCRIT 41.8 % (38.4-49.7); HEMOGLOBIN 15.1 g/dL (12.9-16.9); MEAN CORPUSCULAR HEMOGLOBIN 32.6 pg (31.6-35.5); MEAN CORPUSCULAR HGB CONC 36.1 g/dL (31.6-35.5); MEAN CORPUSCULAR VOLUME 90.3 fL (81.4-99.0); RED BLOOD CELL COUNT 4.63 M/uL (4.14-5.76); WHITE BLOOD CELL COUNT,WBC 12.7 K/uL (3.2-11.0)
[2024-08-16 06:03] LABS: ANION GAP 11.8 mmol/L (5.0-14.0); CALCIUM 7.8 mg/dL (8.5-10.1); CREATININE 1.1 mg/dL (0.8-1.3); EST CRCL DRUG DOSING (CG) 78.35 mL/min; POTASSIUM,K 3.8 mmol/L (3.6-5.2)
[2024-08-16] MEDS: Insulin Lispro 100 Unit/ML 3 ML KwikPen SUBCUT SCH (08:43)
[2024-08-16] MEDS ORDERED: Non-Formulary Medication 1 Each (Atorvastatin [Lipitor] 80 MG Tablet) PO SCH (09:00)
[2024-08-16] MEDS: Losartan 25 MG Tab PO SCH (09:48)
[2024-08-16] MEDS: Isosorbide Mononitrate 30 MG Tab.ER PO SCH (09:50)
[2024-08-16] MEDS: DULoxetine 20 MG Cap PO SCH (09:50)
[2024-08-16] MEDS: Aspirin 81 MG Tab.EC PO SCH (09:50)
[2024-08-16] MEDS: atorvaSTATin 20 MG Tab PO SCH (09:51)
[2024-08-16] MEDS: Empagliflozin 25 MG Tab PO SCH (09:51)
[2024-08-16] MEDS: Metoprolol Succinate 25 MG Tab.ER PO SCH (09:52)
[2024-08-16] MEDS: Ezetimibe 10 MG Tab PO SCH (09:52)
[2024-08-16] MEDS: DULoxetine 20 MG Cap PO ONE (10:59)
[2024-08-16 11:41] LABS: AMPHETAMINES SCREEN, URINE NEGATIVE (NEGATIVE); BARBITURATE SCREEN,URINE NEGATIVE (NEGATIVE); BENZODIAZEPINES SCREEN,URINE NEGATIVE (NEGATIVE); METHADONE SCREEN, URINE NEGATIVE (NEGATIVE); METHAMPHETAMINES SCREEN, URINE NEGATIVE (NEGATIVE); OXYCODONE SCREEN,URINE NEGATIVE (NEGATIVE); PROPOXYPHENE SCREEN,URINE NEGATIVE (NEGATIVE); THC SCREEN,URINE 50 NG/ML PRESUMPTIVE POSITIVE (NEGATIVE)
[2024-08-16] MEDS: Calcium Carbonate 500 MG Tab.Chew PO PRN (14:23)
[2024-08-16] MEDS: Pantoprazole 40 MG Tab.CR PO SCH (15:55)
[2024-08-16] MEDS: oxyCODONE 5 MG Tab PO PRN (19:33)
[2024-08-17 06:04] LABS: HEMATOCRIT 44.5 % (38.4-49.7); HEMOGLOBIN 15.6 g/dL (12.9-16.9); MEAN CORPUSCULAR HEMOGLOBIN 32.3 pg (31.6-35.5); MEAN CORPUSCULAR HGB CONC 35.1 g/dL (31.6-35.5); MEAN CORPUSCULAR VOLUME 92.1 fL (81.4-99.0); RED BLOOD CELL COUNT 4.83 M/uL (4.14-5.76); WHITE BLOOD CELL COUNT,WBC 8.6 K/uL (3.2-11.0)
[2024-08-17 06:26] LABS: ANION GAP 9.5 mmol/L (5.0-14.0); EST CRCL DRUG DOSING (CG) 86.18 mL/min; POTASSIUM,K 3.5 mmol/L (3.6-5.2)
[2024-08-17] MEDS: DULoxetine 30 MG Cap PO SCH (08:52)
[2024-08-17] MEDS: Potassium Chloride 20 MEQ Tab.ER PO ONE (10:11)
[2024-08-17] MEDS: Sucralfate 1 GM Tab PO SCH (12:05)
[2024-08-18] MEDS: Melatonin 3 MG Tab PO PRN (00:14)
[2024-08-19 11:08] VITALS: BP 162/96; PULSE 78
== END 2024-08-19 11:15 | disposition home or self-care (01) | DRG 392 ==
LOC: JP.ED 13:49 → JP.MS 18:38 → OBSVTOIN 08-17 16:02
PROVIDERS: ADMIT Registered Nurse; ATTEND Internal Medicine
DX: A08.4 Viral intestinal infection, unspecified (principal); K52.9 Noninfective gastroenteritis and colitis, unspecified; Z66 Do not resuscitate; H54.7 Unspecified visual loss; I25.10 Atherosclerotic heart disease of native coronary artery without angina pectoris; E78.00 Pure hypercholesterolemia, unspecified; I25.2 Old myocardial infarction; K21.9 Gastro-esophageal reflux disease without esophagitis; K27.9 Peptic ulcer, site unspecified, unspecified as acute or chronic, without hemorrhage or perforation; I11.9 Hypertensive heart disease without heart failure; F32.A Depression, unspecified; R74.8 Abnormal levels of other serum enzymes; E11.42 Type 2 diabetes mellitus with diabetic polyneuropathy; E86.0 Dehydration; E11.65 Type 2 diabetes mellitus with hyperglycemia; F17.200 Nicotine dependence, unspecified, uncomplicated; Z86.16 Personal history of COVID-19; Z95.5 Presence of coronary angioplasty implant and graft; Z79.4 Long term (current) use of insulin; Z79.01 Long term (current) use of anticoagulants; Z79.899 Other long term (current) drug therapy
CPT/HCPCS: 36415; 71045; 71045-26; 74177; 80048; 80053; 80305-QW; 80307; 81001; 82947; 83605; 83690; 85025; 85027; 86140; 87428-QW; 96361; 96365; 96366; 96367; 96374; 96375; 96376; 99222; 99232; 99238; 99283; 99285-25; A9270-GY; G0378; J0744; J1815; J1815-GY; J1836; J2270; J2405; J2470; J2550; J3490; J7030; Q9967

== ENCOUNTER 2024-12-14 10:48 | Emergency (ER) | payer MEDICAID ==
[2024-12-14] MEDS ORDERED: Nitroglycerin 0.4 MG Tab.SL SL PRN (11:21)
[2024-12-14 11:34] LABS: BASOPHILS ABSOLUTE AUTO 0.07 K/uL (0.00-0.10); BASOPHILS PERCENT AUTO 0.8 % (0.1-1.3); EOSINOPHILS ABSOLUTE AUTO 0.24 K/uL (0.00-0.40); EOSINOPHILS PERCENT AUTO 2.7 % (0.0-5.4); HEMATOCRIT 42.6 % (38.4-49.7); HEMOGLOBIN 14.9 g/dL (12.9-16.9); IMMATURE GRAN ABSOLUTE AUTO 0.04 K/uL (0.00-0.23); IMMATURE GRAN PERCENT AUTO 0.4 % (0.0-0.7); LYMPHOCYTES PERCENT AUTO 13.3 % (11.4-47.7); MEAN CORPUSCULAR HEMOGLOBIN 32.6 pg (31.6-35.5); MEAN CORPUSCULAR VOLUME 93.2 fL (81.4-99.0); MONOCYTES ABSOLUTE AUTO 0.58 K/uL (0.20-0.90); MONOCYTES PERCENT AUTO 6.5 % (3.3-12.6); NEUTROPHILS ABSOLUTE AUTO 6.86 K/uL (1.0-7.6); NEUTROPHILS PERCENT AUTO 76.3 % (40.0-78.1); PLATELET COUNT,PLT 269 K/uL (130-375); RED BLOOD CELL COUNT 4.57 M/uL (4.14-5.76)
[2024-12-14] MEDS: Aspirin 81 MG Tab.Chew PO ONE (11:36)
[2024-12-14] MEDS: Ondansetron 4 MG Tab.DIS PO ONE (11:36)
[2024-12-14] MEDS: Morphine 4 MG/ML Syringe IVPUSH PRN (11:36)
[2024-12-14 11:59] LABS: CALCIUM 9.2 mg/dL (8.5-10.1); CREATININE 1.1 mg/dL (0.8-1.3); EST CRCL DRUG DOSING (CG) 78.35 mL/min; POTASSIUM,K 4.4 mmol/L (3.6-5.2); TROPONIN I HIGH SENSITIVITY 13.7 pg/mL (<=60.3)
[2024-12-14 12:01] VITALS: BP 174/94; PULSE 70
[2024-12-14 12:02] LABS: ANION GAP 8.4 mmol/L (5.0-14.0)
[2024-12-14] MEDS ORDERED: Ketorolac 30 MG/ML SDV IM ONE (12:13)
[2024-12-14] MEDS: Ketorolac 30 MG/ML SDV IVPUSH ONE (12:30)
== END 2024-12-14 13:12 | disposition home or self-care (01) ==
LOC: JP.ED 10:48
DX: R07.89 Other chest pain (principal); I10 Essential (primary) hypertension; I25.2 Old myocardial infarction; I25.10 Atherosclerotic heart disease of native coronary artery without angina pectoris; K21.9 Gastro-esophageal reflux disease without esophagitis; E78.00 Pure hypercholesterolemia, unspecified; F17.210 Nicotine dependence, cigarettes, uncomplicated; Z86.16 Personal history of COVID-19; E11.9 Type 2 diabetes mellitus without complications; Z79.82 Long term (current) use of aspirin; Z79.899 Other long term (current) drug therapy; Z79.84 Long term (current) use of oral hypoglycemic drugs
CPT/HCPCS: 36415; 71046; 80048; 84484; 85025; 93005; 96374; 96375; 99285; A9270; J1885; J2270; Q0162

== ENCOUNTER 2025-01-10 07:45 | Day surgery (SDC) | payer MEDICAID ==
[2025-01-10] MEDS ORDERED: fentaNYL 50 MCG/ML SDV ONE (08:26)
[2025-01-10] MEDS ORDERED: Propofol 200 MG/20 ML SDV ONE ×2 (08:26→10:10)
[2025-01-10] MEDS: Lactated Ringers 1,000 ML IV SCH (08:47)
[2025-01-10 11:36] VITALS: BP 107/95; PULSE 59
== END 2025-01-10 11:39 | disposition home or self-care (01) ==
LOC: JP.SDS 07:45
PROVIDERS: ATTEND Surgery
DX: D12.2 Benign neoplasm of ascending colon (principal); D12.3 Benign neoplasm of transverse colon; D12.4 Benign neoplasm of descending colon; K20.90 Esophagitis, unspecified without bleeding; K22.89 Other specified disease of esophagus; I25.10 Atherosclerotic heart disease of native coronary artery without angina pectoris; E11.9 Type 2 diabetes mellitus without complications; F17.200 Nicotine dependence, unspecified, uncomplicated
CPT/HCPCS: 00813; 43239; 45380; 45385; J2704; J3010; J7120